=== PATIENT | male | born 1955 | race Caucasian/White ===

== ENCOUNTER 2017-05-29 18:53 | Inpatient (IN) | payer OTHER ==
[~2017-05-29] VITALS: Ht 172.7 cm; Wt 98.0 kg
[~2017-05-29 18:53] MED LIST: BENA25TA3 PO; HUMALOG SQ; HYDR-3535 PO; IBUP200T47 PO; LANTUS2P SQ; OMEP40CA2 PO
[2017-05-29 19:50] VITALS: BP 131/65; PULSE 94; RESP 16; TEMP 98.3; O2SAT 99
[2017-05-29 20:02] VITALS: BP 168/75; PULSE 96; RESP 16; TEMP 97.7; O2SAT 95
[2017-05-29] MEDS ORDERED: HYDR-3583 PO (20:07)
[2017-05-29] MEDS ORDERED: MORPHINE SULFATE 2 MG/ML INJ IV PUSH ONE (20:15)
[2017-05-29] MEDS ORDERED: DEXTROSE 50% IN WATER 50 ML SYRINGE ONE ×3 (20:25→22:21)
[2017-05-29] MEDS ORDERED: DEXTROSE 50% IN WATER 50 ML VIAL(D50) IV PUSH ONE ×3 (20:30→22:30)
[2017-05-29] MEDS ORDERED: VANCOMYCIN INJ 1,000 MG in SODIUM CHLOR 0.9% 250 ML INJ 250 ML IV ONE (20:30)
[2017-05-29] MEDS ORDERED: PIPERACIL-TAZO 4.5 GM PREMIX 100 ML IV ONE (20:30)
[2017-05-29 20:38] VITALS: O2SAT 95
--- NOTE | 2017-05-29 20:50 | RADRPT ---
EXAM DATE/TIME: 05/29/2017 20:31 [facility] COMPARISON: No previous studies available for comparison. INDICATIONS : Abdominal pain. Scrotal abscess. ORAL CONTRAST: No oral contrast ingested. RADIATION DOSE: 15.05 CTDIvol (mGy) MEDICAL HISTORY : Diabetes mellitus type 2. Gastroesophageal reflux disease. SURGICAL HISTORY : None. ENCOUNTER: Initial ACUITY: 1 day PAIN SCALE: 8/10 LOCATION: abdomen TECHNIQUE: Volumetric scanning of the abdomen and pelvis was performed. Using automated exposure control and ad justment of the mA and/or kV according to patient size, radiation dose was kept as low as reasonably achievable to obtain optimal diagnostic quality images. DICOM format image data is available electro nically for review and comparison. FINDINGS: A small right pleural effusion is noted. Diffuse anasarca is noted. There is fluid within the scrotum bilaterally. Evaluation of the solid organs of the abdomen is limited by the lack of intravenous con trast. There is no acute obstructive uropathy. No bowel obstruction is noted. The appendix is normal. The abdominal aorta is calcified but is not aneurysmally dilated. Mild chronic compression deformity involving the L5 vertebral body is noted. CONCLUSION: Fluid within the scrotum bilaterally. Diffuse anasarca. Small right pleural effusion. No acute obstru ctive uropathy or bowel obstruction. Mild chronic compression deformity involving L5. Nazario Hernandez MD on May 29, 2017 at 20:45 Board Certified Radiologist. This report was verified electronically.
--- NOTE | 2017-05-29 20:53 | RADRPT ---
EXAM DATE/TIME: 05/29/2017 20:31 [facility] COMPARISON: No previous studies available for comparison. INDICATIONS : Back pain. RADIATION DOSE: CTDIvol (mGy) ; Reconstructed from previous dataset, no dose MEDICAL HISTORY : Diabetes mellitus type 2. Gastroesophageal reflux disease. SURGICAL HISTORY : None. ENCOUNTER: Initial ACUITY: 1 day PAIN SCALE: 8/10 LOCATION: [facility] TECHNIQUE: Volumetric scanning of the lumbar spine was performed. Multiplanar reconstructions in the sagittal, coronal and oblique axial planes were performed. Using automated exposure control and adjustment of the mA and/or kV according to patient size, radiation dose was kept as low as reasonably achievable t o obtain optimal diagnostic quality images. DICOM format image data is available electronically for review and comparison. FINDINGS: There is mild chronic compression deformity involving L5. No acute fracture of the lumbar spine is no kim. No spondylolisthesis or spondylolysis is noted. Moderate right neuroforaminal narrowing is noted at L4-5 and L5-S1. No spinal stenosis is noted. CONCLUSION: Mild chronic compression deformity involving L5. No acute compression fracture, spond ylolisthesis or spondylolysis. Moderate right neural foraminal narrowing at L4-5 and L5-S1. Nazario Hernandez MD on May 29, 2017 at 20:49 Board Certified Radiologist. This report was verified electronically.
[2017-05-29 20:55] LABS: AUTOMATED NEUTROPHIL # 4.8 TH/MM3 (1.8-7.7); BASOPHIL % 0.7 % (0.0-2.0); EOSINOPHIL # 0.2 TH/MM3 (0-0.4); EOSINOPHIL % 2.9 % (0.0-4.0); HEMATOCRIT 36.3 % (39.0-51.0); LYMPH % 13.6 % (9.0-44.0); LYMPHOCYTE # 0.9 TH/MM3 (1.0-4.8); MEAN CELL VOLUME 81.3 FL (80.0-100.0); MEAN CORPUSCULAR HEMOGLOBIN 26.9 PG (27.0-34.0); MEAN CORPUSCULAR HGB CONC 33.1 % (32.0-36.0); MEAN PLATELET VOLUME 8.9 FL (7.0-11.0); MONO % 13.1 % (0.0-8.0); MONOCYTE # 0.9 TH/MM3 (0-0.9); NEUT % 69.7 % (16.0-70.0); PLATELET COUNT 221 TH/MM3 (150-450); RED BLOOD COUNT 4.46 MIL/MM3 (4.50-5.90); RED CELL DISTRIBUTION WIDTH 14.2 % (11.6-17.2); WHITE BLOOD COUNT 6.8 TH/MM3 (4.0-11.0)
--- NOTE | 2017-05-29 21:01 | PD ---
HPI Chief Complaint: Complaint Time Seen by Provider: 20:06 Travel History International Travel<30 days: No Contact w/Intl Traveler<30days: No Traveled to known affect area: No History of Present Illness HPI 62-year-old male with history of insulin dependent diabetes, chronic low back pain, here for evaluation of testicular pain and swelling as well as low back pain. Patient reports he first noticed a testicular swelling 2 days ago, and since then it has progressively increased in size and pain. Pain is severe, constant, worse with movement and palpation. Patient also reports having chronic lower back pain and is on Lortab for this, however his pain has acutely worsened over the last couple of days. He denies trauma. No fevers. No urinary or bowel incontinence or retention. PFSH Past Medical History Diabetes: Yes (IDDM) Patient Takes Glucophage: No Diminished Hearing: No GERD: Yes Musculoskeletal: Yes (Chronic back pain. ) Tetanus Vaccination: < 5 Years Influenza Vaccination: No Social History Alcohol Use: No Tobacco Use: Yes (2 packs per week. ) Substance Use: No Allergies-Medications (Allergen,Severity, Reaction): Coded Allergies: No Known Allergies (Unverified Allergy, Unknown, 05/29/17) Reported Meds & Prescriptions Reported Meds & Active Scripts Active Reported Hydrocodone-Acetaminophen 10-325 mg Tab 1 Tab PO Q6H PRN Ibuprofen 200 Mg Tab 200 Mg PO Q6H PRN Omeprazole 40 Mg Cap 40 Mg PO DAILY Humalog Inj (Insulin Human Lispro) 1,000 Unit/10 Ml Vial 2-12 Units SQ ACHS Max dose at bedtime:( )units; sugars < 70,(0)units; sugars 150-199,(2)units; sugars 200-249,(4)units; sugars 250-299,(7)units; sugars 300-349,(10)units; sugars more than 349,(12)units. Lantus Inj (Insulin Glargine) 100 Unit/Ml Inj 30 Units SQ BID Review of Systems Except as stated in HPI: all other systems reviewed are Neg Physical Exam Narrative GENERAL: Well-developed, well-nourished, no apparent distress. SKIN: Focused skin assessment warm/dry. HEAD: Atraumatic. Normocephalic. EYES: Pupils equal and round. No scleral icterus. No injection or drainage. ENT: Mucous membranes pink and moist. NECK: Trachea midline. No JVD. CARDIOVASCULAR: Regular rate and rhythm. RESPIRATORY: No accessory muscle use. Clear to auscultation. Breath sounds equal bilaterally. GASTROINTESTINAL: Abdomen soft, non-tender, nondistended. : Significant scrotal edema and erythema with apparent fluid-filled scrotum on exam, no crepitus, no necrosis, no induration. MUSCULOSKELETAL: No obvious deformities. No clubbing. No cyanosis. No edema. Moderate midline lumbar spine tenderness without step-off. NEUROLOGICAL: Awake and alert. No obvious cranial nerve deficits. Motor grossly within normal limits. Normal speech. PSYCHIATRIC: Appropriate mood and affect; insight and judgment normal. Data Data Last Documented VS Vital Signs Date Time Temp Pulse Resp B/P (MAP) Pulse Ox O2 Delivery O2 Flow Rate FiO2 05/29/17 21:43 89 16 138/67 (90) 98 Room Air 05/29/17 20:02 97.7 Orders Orders Sepsis Workup Initiated (05/29/17 ) Electrocardiogram (05/29/17 20:10) Complete Blood Count With Diff (05/29/17 20:10) Comprehensive Metabolic Panel (05/29/17 20:10) Prothrombin Time / Inr (Pt) (05/29/17 20:10) Act Partial Throm Time (Ptt) (05/29/17 20:10) Lactic Acid Sepsis Protocol (05/29/17 20:10) Lipase (05/29/17 20:10) Urinalysis - C+S If Indicated (05/29/17 20:10) Blood Culture (05/29/17 20:10) Ecg Monitoring (05/29/17 20:10) Iv Access Insert/Monitor (05/29/17 20:10) Oximetry (05/29/17 20:10) Ct Abd/Pel W/O Iv Contrast (05/29/17 20:10) Us Testicles W Doppler (05/29/17 ) Morphine Inj (Morphine Inj) (05/29/17 20:15) Ct Lumb Spine W/O Contrast (05/29/17 ) Vancomycin Inj (Vancomycin Inj) (05/29/17 20:30) Piperacil-Tazo 4.5 Gm Premix (Zosyn 4.5 (05/29/17 20:30) Dextrose 50% In David (Vial) Inj (D50w (Vi (05/29/17 20:30) Dextrose 50% In David (Syr) Inj (D50w (Syr (05/29/17 20:25) Dextrose 50% In David (Syr) Inj (D50w (Syr (05/29/17 21:31) Dextrose 50% In David (Vial) Inj (D50w (Vi (05/29/17 21:45) Dextrose 10% Inj (D... W/Sodium Chloride (05/29/17 22:00) Admit Order (Ed Use Only) (05/29/17 22:02) Labs Laboratory Tests Test 05/29/17 20:30 White Blood Count 6.8 TH/MM3 Red Blood Count 4.46 MIL/MM3 Hemoglobin 12.0 GM/DL Hematocrit 36.3 % Mean Corpuscular Volume 81.3 FL Mean Corpuscular Hemoglobin 26.9 PG Mean Corpuscular Hemoglobin Concent 33.1 % Red Cell Distribution Width 14.2 % Platelet Count 221 TH/MM3 Mean Platelet Volume 8.9 FL Neutrophils (%) (Auto) 69.7 % Lymphocytes (%) (Auto) 13.6 % Monocytes (%) (Auto) 13.1 % Eosinophils (%) (Auto) 2.9 % Basophils (%) (Auto) 0.7 % Neutrophils # (Auto) 4.8 TH/MM3 Lymphocytes # (Auto) 0.9 TH/MM3 Monocytes # (Auto) 0.9 TH/MM3 Eosinophils # (Auto) 0.2 TH/MM3 Basophils # (Auto) 0.0 TH/MM3 CBC Comment DIFF FINAL Differential Comment Prothrombin Time 11.1 SEC Prothromb Time International Ratio 1.1 RATIO Activated Partial Thromboplast Time 26.0 SEC Blood Urea Nitrogen 24 MG/DL Creatinine 0.72 MG/DL Random Glucose 40 MG/DL Total Protein 6.4 GM/DL Albumin 2.9 GM/DL Calcium Level 8.6 MG/DL Alkaline Phosphatase 170 U/L Aspartate Amino Transf (AST/SGOT) 40 U/L Alanine Aminotransferase (ALT/SGPT) 42 U/L Total Bilirubin 0.3 MG/DL Sodium Level 140 MEQ/L Potassium Level 3.8 MEQ/L Chloride Level 107 MEQ/L Carbon Dioxide Level 23.5 MEQ/L Anion Gap 10 MEQ/L Estimat Glomerular Filtration Rate 111 ML/MIN Lactic Acid Level 1.8 mmol/L Lipase 107 U/L [facility] Medical Decision Making Medical Screen Exam Complete: Yes Emergency Medical Condition: Yes Differential Diagnosis Fourniere's gangrene, scrotal abscess, testicular torsion, chronic low back pain , spinal stenosis, sepsis Narrative Course Vital signs reviewed. CBC: WBC 6.8, hemoglobin 12, hematocrit 36.3, platelets 221. CMP is remarkable for random glucose 48, otherwise unremarkable. Lactic acid is 1.8. CT abdomen pelvis: CONCLUSION: Fluid within the scrotum bilaterally. Diffuse anasarca. Small right pleural effusion. No acute obstructive uropathy or bowel obstruction. Mild chronic compression deformity involving L5. The patient was empirically started on IV vancomycin and IV Zosyn for suspected scrotal infection/abscess versus Fourniere's gangrene. Initial BGL was in the 50s. He was given an amp of D50 and repeat blood sugar was even lower at 36. He was given another amp and then started on D10 half-normal saline at 75 cc per hour. Case was discussed with marine diver Dr. Peter who will admit the patient to his service. Critical Care Narrative Aggregate critical care time was 35 minutes. Time to perform other separately billable procedures was not included in the critical care time. My time did not include minutes spent treating any other patients simultaneously or on activities that did not directly contribute to the patient's treatment. The services I provided to this patient were to treat and/or prevent clinically significant deterioration that could result in: , permanent disability, worsening clinical condition I provided critical care services requiring my management, as noted below: Chart data review, documentation time, medication orders and management, vital sign assessments/reviewing monitor data, ordering and reviewing lab tests, ordering and interpreting/reviewing x-rays and diagnostic studies, care of the patient and discussion of the patient with the admitting physicians. Diagnosis Primary Impression: Sepsis Qualified Codes: A41.9 - Sepsis, unspecified organism Additional Impressions: Hypoglycemia Scrotal edema Admitting Information Admitting Physician Requests: Admit Sidney Ramos MD May 29, 2017 21:01
[2017-05-29 21:05] LABS: INTERNATIONAL NORMALIZED RATIO 1.1 RATIO; PROTHROMBIN TIME - PATIENT 11.1 SEC (9.8-11.6)
[2017-05-29 21:10] LABS: ALBUMIN 2.9 GM/DL (3.4-5.0); ALKALINE PHOSPHATASE 170 U/L (45-117); ALT (GPT) 42 U/L (12-78); AST (GOT) 40 U/L (15-37); BICARBONATE 23.5 MEQ/L (21.0-32.0); BLOOD UREA NITROGEN 24 MG/DL (7-18); CALCIUM 8.6 MG/DL (8.5-10.1); CHLORIDE 107 MEQ/L (98-107); CREATININE 0.72 MG/DL (0.60-1.30); GLOMERULAR FILTRATION RATE 111 ML/MIN (>89); SODIUM (NA) 140 MEQ/L (136-145); TOTAL BILIRUBIN ADULT 0.3 MG/DL (0.2-1.0); TOTAL PROTEIN 6.4 GM/DL (6.4-8.2)
[2017-05-29 21:11] LABS: GLUCOSE,RANDOM 40 MG/DL (74-106)
[2017-05-29 21:43] VITALS: BP 138/67; PULSE 89; RESP 16; O2SAT 98
[2017-05-29] MEDS ORDERED: SODIUM CHLORIDE 23.4% INJ 77 MEQ in DEXTROSE 10% INJ 1,000 ML IV SCH (22:00)
--- NOTE | 2017-05-29 22:10 | RADRPT ---
EXAM DATE/TIME: 05/29/2017 20:48 [facility] COMPARISON: No previous studies available for comparison. INDICATIONS : Testicular pain. MEDICAL HISTORY : Gastroesophageal reflux disease. GERD. Chronic back pain. Tabacco use. Diabetes. SURGICAL HISTORY : Left hand and left shoulder surgery. ENCOUNTER: Initial ACUITY: 2 days PAIN SCORE: 5/10 LOCATION: Bilateral testicles. MEASUREMENTS: RIGHT TESTICLE: 3.6 x 2.3 x 2.4cm LEFT TESTICLE: 3.4 x 2.2 x 2.5cm FINDINGS: RIGHT TESTICLE: Homogeneous echotexture without intra or extratesticular mass. Blood flow is symmetric and within no rmal limits. No varicocele. Small hydrocele is noted. Epididymis is within normal limits. LEFT TESTICLE: Homogeneous echotexture without intra or extratesticular mass. Blood flow is symmetric and within no rmal limits. No varicocele. Small hydrocele is noted. Epididymis is within normal limits. SCROTUM: Within normal limits. CONCLUSION: Small bilateral hydroceles. No intratesticular mass, testicular torsion or acute epid idymo- orchitis. Nazario Hernandez MD on May 29, 2017 at 22:07 Board Certified Radiologist. This report was verified electronically.
[2017-05-29] MEDS ORDERED: CHLORHEXIDINE GLUCONATE 2 % 1 PACK (2 CLOTHS) TOP PRN (22:15)
[2017-05-29] MEDS ORDERED: POTASSIUM CHLORIDE 25 MEQ EFFERVESCENT TAB PO PRN (22:15)
[2017-05-29] MEDS ORDERED: MAGNESIUM HYDROXIDE SUSP 30 ML CUP PO PRN (22:15)
[2017-05-29] MEDS ORDERED: MISCELLANEOUS NURSING INFORMATION XX SCH (22:15)
[2017-05-29] MEDS ORDERED: POTASSIUM PHOSPHATE MONOBASIC 500 MG TAB PO PRN (22:15)
[2017-05-29] MEDS ORDERED: MAGNESIUM SULFATE INJ 4 GM in SODIUM CHLORIDE 0.9% INJ 92 ML IV PRN (22:15)
[2017-05-29] MEDS ORDERED: ONDANSETRON HCL 4 MG/2 ML VIAL IV PUSH PRN (22:15)
[2017-05-29] MEDS ORDERED: RESP: ALBUTEROL 2.5 MG/IPRATROPIUM 0.5 MG NEB (PRN) INH (22:15)
[2017-05-29] MEDS ORDERED: POTASSIUM PHOSPHATE MONOBASIC 500 MG TAB PO/TUBE PRN (22:15)
[2017-05-29] MEDS ORDERED: SODIUM PHOSPHATE INJ 30 MMOL in SODIUM CHLOR 0.9% 250 ML INJ 240 ML IV PRN (22:15)
[2017-05-29] MEDS ORDERED: Vancomycin Consult Pharmacy 1 EA OTHER SCH (22:15)
[2017-05-29] MEDS ORDERED: MAGNESIUM SULFATE INJ 2 GM in SODIUM CHLORIDE 0.9% INJ 96 ML IV PRN (22:15)
[2017-05-29] MEDS ORDERED: POTASSIUM PHOSPHATE INJ 30 MMOL in SODIUM CHLOR 0.9% 250 ML INJ 250 ML IV PRN (22:15)
[2017-05-29] MEDS ORDERED: SENNOSIDES 8.6 MG TAB PO PRN (22:15)
[2017-05-29] MEDS ORDERED: BISACODYL 10 MG SUPP RECTAL PRN (22:15)
[2017-05-29] MEDS ORDERED: LACTULOSE SYRUP 20 GM/30 ML CUP PO PRN (22:15)
[2017-05-29] MEDS ORDERED: MAGNESIUM OXIDE 400 MG TAB PO PRN (22:15)
[2017-05-29] MEDS ORDERED: POTASSIUM CHLOR 20 MEQ PREMIX 100 ML IV PRN ×2 (22:15)
[2017-05-29] MEDS ORDERED: POTASSIUM CHLOR 40 MEQ PREMIX 100 ML IV PRN ×2 (22:15)
--- NOTE | 2017-05-29 22:24 | HHI.HP ---
[facility] Service Critical Care Medicine Primary Care Physician Myrtle Reynoso MD Admission Diagnosis sepsis, hypoglycemia, scrotal edema Diagnosis: Chief Complaint: scrotal swelling Travel History International Travel<30 Days: No Contact w/Intl Traveler <30 Da: No Traveled to Known Affected Are: No History of Present Illness 8-year-old male with a history of insulin-dependent diabetes, chronic low back pain who presented with scrotal swelling and pain. The patient reports at least 2 days of progressive scrotal swelling. He does state that intermittently his legs swell "because of his diabetes". He denies chest pain, orthopnea, dyspnea on exertion, fever, chills, purulent drainage from his scrotum or penis. His review of systems is otherwise unremarkable. He has a normal white count, is afebrile. He does have an elevated BNP at 800. Review of Systems Constitutional: COMPLAINS OF: Weight gain, DENIES: Fatigue, Fever, Chills Respiratory: DENIES: Cough, Sputum production, Shortness of breath Cardiovascular: DENIES: Chest pain, Dyspnea on Exertion, Lower Extremity Edema , Orthopnea Genitourinary: COMPLAINS OF: Testicular Pain, Testicular Swelling, DENIES: Sexual dysfunction, Urinary frequency, Urinary incontinence, Urgency, Hematuria , Dysuria, Nocturia, Penile Discharge Past Family Social History Allergies: Coded Allergies: No Known Allergies (Unverified Allergy, Unknown, 05/29/17) Past Medical History Insulin-dependent diabetes GERD Chronic back pain Past Surgical History No recent surgery Reported Medications Hydrocodone-Acetaminophen 10-325 mg Tab 1 Tab PO Q6H PRN Ibuprofen 200 Mg Tab 200 Mg PO Q6H PRN Omeprazole 40 Mg Cap 40 Mg PO DAILY Humalog Inj (Insulin Human Lispro) 1,000 Unit/10 Ml Vial 2-12 Units SQ ACHS Max dose at bedtime:( )units; sugars < 70,(0)units; sugars 150-199,(2)units; sugars 200-249,(4)units; sugars 250-299,(7)units; sugars 300-349,(10)units; sugars more than 349,(12)units. Lantus Inj (Insulin Glargine) 100 Unit/Ml Inj 30 Units SQ BID Active Ordered Medications See MAR Family History Reviewed in the chart and found to be noncontributory to his acute illness Social History 2 pack per week smoker. Denies alcohol. Denies other drugs. Physical Exam Vital Signs Vital Signs Date Time Temp Pulse Resp B/P (MAP) Pulse Ox O2 Delivery O2 Flow Rate FiO2 05/29/17 21:43 89 16 138/67 (90) 98 Room Air 05/29/17 20:38 95 Room Air 05/29/17 20:02 97 20 05/29/17 20:02 97.7 96 16 168/75 (106) 95 Room Air 05/29/17 19:50 98.3 94 16 131/65 (87) 99 Physical Exam GENERAL: Middle-aged male, lying in bed HEENT: Normocephalic. Atraumatic. Pupils equal, round, reactive, conjugate. Mucous membranes are moist NECK: Trachea is midline. There is no JVD. CHEST: Equal chest rise. Room air. CARDIOVASCULAR: Normal rate, regular rhythm. Sinus by telemetry. ABDOMEN: Soft, nontender, nondistended. No guarding. MUSCULOSKELETAL: Pulses 2+. 2+ pitting edema which comes up above the thigh to the lower abdomen. GENITOURINARY: Significant scrotal edema without evidence of erythema, purulent drainage, induration, fluctuance. Normal male circumcised penis. NEUROLOGICAL: [place]. GCS 15. No focal deficits. Laboratory Laboratory Tests Test 05/29/17 20:30 White Blood Count 6.8 Red Blood Count 4.46 Hemoglobin 12.0 Hematocrit 36.3 Mean Corpuscular Volume 81.3 Mean Corpuscular Hemoglobin 26.9 Mean Corpuscular Hemoglobin Concent 33.1 Red Cell Distribution Width 14.2 Platelet Count 221 Mean Platelet Volume 8.9 Neutrophils (%) (Auto) 69.7 Lymphocytes (%) (Auto) 13.6 Monocytes (%) (Auto) 13.1 Eosinophils (%) (Auto) 2.9 Basophils (%) (Auto) 0.7 Neutrophils # (Auto) 4.8 Lymphocytes # (Auto) 0.9 Monocytes # (Auto) 0.9 Eosinophils # (Auto) 0.2 Basophils # (Auto) 0.0 CBC Comment DIFF FINAL Differential Comment Prothrombin Time 11.1 Prothromb Time International Ratio 1.1 Activated Partial Thromboplast Time 26.0 Blood Urea Nitrogen 24 Creatinine 0.72 Random Glucose 40 Total Protein 6.4 Albumin 2.9 Calcium Level 8.6 Alkaline Phosphatase 170 Aspartate Amino Transf (AST/SGOT) 40 Alanine Aminotransferase (ALT/SGPT) 42 Total Bilirubin 0.3 Sodium Level 140 Potassium Level 3.8 Chloride Level 107 Carbon Dioxide Level 23.5 Anion Gap 10 Estimat Glomerular Filtration Rate 111 Lactic Acid Level 1.8 Lipase 107 Date/Time Source Procedure Growth Status 05/29/17 20:30 Blood Peripheral Aerobic Blood Culture Pending Received 05/29/17 20:30 Blood Peripheral Anaerobic Blood Culture Pending Received Result Diagram: 05/29/17202905/29/172029 Imaging Last Impressions Abdomen/Pelvis CT 05/29/172009 Signed Impressions: Service Date/Time: May 20:31 - CONCLUSION: Fluid within the scrotum bilaterally. Diffuse anasarca. Small right pleural effusion. No acute obstructive uropathy or bowel obstruction. Mild chronic compression deformity involving L5. Nazario Hernandez MD Scrotum Ultrasound 05/29/17 0000 Signed Impressions: Service Date/Time: May 20:48 - CONCLUSION: Small bilateral hydroceles. No intratesticular mass, testicular torsion or acute epididymo- orchitis. Nazario Hernandez MD Lumbar Spine CT 05/29/17 0000 Signed Impressions: Service Date/Time: May 20:31 - CONCLUSION: Mild chronic compression deformity involving L5. No acute compression fracture, spondylolisthesis or spondylolysis. Moderate right neural foraminal narrowing at L4-5 and L5-S1. MD Ariel Tovari VTE Risk Assessment Caprini VTE Risk Assessment: Mod/High Risk (score >= 2) Caprini Risk Assessment Model Point Value = 1 Point Value = 2 Point Value = 3 Point Value = 5 Age 41-60 Minor surgery BMI > 25 kg/m2 Swollen legs Varicose veins or History of unexplained or recurrent spontaneous Oral contraceptives or hormone replacement Sepsis (< 1 month) Serious lung disease, including pneumonia (< 1 month) Abnormal pulmonary function Acute myocardial infarction Congestive heart failure (< 1 month) History of inflammatory bowel disease Medical patient at bed rest Age 61-74 Arthroscopic surgery Major open surgery (> 45 min) Laparoscopic surgery (> 45 min) Malignancy Confined to bed (> 72 hours) Immobilizing plaster cast Central venous access Age >= 75 History of VTE Family history of VTE Factor V Leiden Prothrombin [id number] Lupus anticoagulant Anticardiolipin antibodies Elevated serum homocysteine Heparin-induced thrombocytopenia Other congenital or acquired thrombophilia Stroke (< 1 month) Elective arthroplasty Hip, pelvis, or leg fracture Acute spinal cord injury (< 1 month) Prophylaxis Regimen Total Risk Factor Score Risk Level Prophylaxis Regimen 0-1 Low Early ambulation 2 Moderate Order ONE of the following: *Sequential Compression Device (SCD) *Heparin 5000 units SQ BID 3-4 Higher Order ONE of the following medications: *Heparin 5000 units SQ TID *Enoxaparin/Lovenox 40 mg SQ daily (WT < 150 kg, CrCl > 30 mL/min) *Enoxaparin/Lovenox 30 mg SQ daily (WT < 150 kg, CrCl > 10-29 mL/min) *Enoxaparin/Lovenox 30 mg SQ BID (WT < 150 kg, CrCl > 30 mL/min) AND/OR *Sequential Compression Device (SCD) 5 or more Highest Order ONE of the following medications: *Heparin 5000 units SQ TID (Preferred with Epidurals) *Enoxaparin/Lovenox 40 mg SQ daily (WT < 150 kg, CrCl > 30 mL/min) *Enoxaparin/Lovenox 30 mg SQ daily (WT < 150 kg, CrCl > 10-29 mL/min) *Enoxaparin/Lovenox 30 mg SQ BID (WT < 150 kg, CrCl > 30 mL/min) AND *Sequential Compression Device (SCD) Assessment and Plan Assessment and Plan Assessment: 62-year-old male with new onset scrotal edema and severe hypoglycemia despite dextrose. This was initially thought to be highly concerning for Richardson's, however on serial re-evaluations, the patient no longer appears to have infectious source of his edema. It appears much more likely that the patient has worsening heart failure, likely with preserved EF. The patient has never been told he has any sort of heart failure before, but these are all consistent with his elevated BNP and symptoms of lower extremity edema. Will order 2D echo to confirm the diagnosis. His hypoglycemia is more concerning, but it appears that he has not eaten anything today, but still took his Lantus which may be the source of his hypoglycemia. Continue dextrose infusion and frequent glycemic checks. Active problems: Severe hypoglycemia, likely secondary to long-acting insulin use Scrotal edema Anasarca Suspected congestive heart failure with preserved EF Plan: Admit to ICU for frequent glycemic checks D10 infusion at 75 mL's an hour Lasix 60 mg's IV 1 We will cover with vancomycin and Zosyn empirically for 48 hours until blood cultures come back, given the patient is diabetic and would be at high risk for Richardson's gangrene. We have low threshold to de-escalate and stop antibiotics if cultures are negative and patient remains afebrile. 2D echo Hold all insulin therapy for now Advance diet Disposition: May transfer out of ICU when stable off dextrose infusion and no longer hypoglycemic Edgar Peter MD May 29, 2017 22:24
[2017-05-29 22:37] VITALS: BP 146/72; PULSE 87; RESP 16; O2SAT 98
[2017-05-29] MEDS ORDERED: VANCOMYCIN INJ 700 MG in SODIUM CHLOR 0.9% 250 ML INJ 250 ML IV SCH (23:00)
[2017-05-29] MEDS: ENOXAPARIN SODIUM 40 MG/0.4 ML SYRINGE SQ SCH (23:16)
[2017-05-30] VITALS (10 sets, daily range): BP systolic 119–155; BP diastolic 67–74; PULSE 88–96; RESP 16–21; TEMP 97.5–98; O2SAT 88–100
[2017-05-30] MEDS: CHLORHEXIDINE GLUCONATE 2 % 1 PACK (2 CLOTHS) TOP SCH (01:29)
[2017-05-30] MEDS ORDERED: FUROSEMIDE 40 MG/4 ML VIAL IV PUSH ONE (03:15)
[2017-05-30] MEDS: RESP: ALBUTEROL 2.5 MG/IPRATROPIUM 0.5 MG NEB (SCH) INH ×3 (03:31→16:00)
[2017-05-30] MEDS: PIPERACIL-TAZO 4.5 GM PREMIX 100 ML IV SCH ×4 (03:58→23:42)
[2017-05-30 04:16] LABS: HEMATOCRIT 36.8 % (39.0-51.0); MEAN CELL VOLUME 81.7 FL (80.0-100.0); MEAN CORPUSCULAR HEMOGLOBIN 26.7 PG (27.0-34.0); MEAN CORPUSCULAR HGB CONC 32.7 % (32.0-36.0); MEAN PLATELET VOLUME 8.8 FL (7.0-11.0); PLATELET COUNT 210 TH/MM3 (150-450); RED BLOOD COUNT 4.51 MIL/MM3 (4.50-5.90); RED CELL DISTRIBUTION WIDTH 13.8 % (11.6-17.2); WHITE BLOOD COUNT 6.7 TH/MM3 (4.0-11.0)
[2017-05-30 04:54] LABS: BICARBONATE 25.9 MEQ/L (21.0-32.0); CALCIUM 8.3 MG/DL (8.5-10.1); CREATININE 0.79 MG/DL (0.60-1.30)
[2017-05-30] MEDS ORDERED: DEXTROSE 50% IN WATER 50 ML VIAL(D50) IV PUSH PRN (07:45)
[2017-05-30] MEDS ORDERED: GLUCAGON 1 MG/ML VIAL OTHER PRN (07:45)
--- NOTE | 2017-05-30 07:50 | HHI.CCPN ---
Subjective Remarks/Hospital Course 8-year-old male with a history of insulin-dependent diabetes, chronic low back pain who presented with scrotal swelling and pain. The patient reports at least 2 days of progressive scrotal swelling. He does state that intermittently his legs swell "because of his diabetes". He denies chest pain, orthopnea, dyspnea on exertion, fever, chills, purulent drainage from his scrotum or penis. His review of systems is otherwise unremarkable. He has a normal white count, is afebrile. He does have an elevated BNP at 800. 05/30: It appears his biggest complaint is chronic back pain. Check cardiac ECHO , continue diuretics. Transfer. No evidence of infection. D/C antibiotics. D/C D !), restart long-acting insulin at lower dose, start SSI. Objective Vital Signs Date Time Temp Pulse Resp B/P (MAP) Pulse Ox O2 Delivery O2 Flow Rate FiO2 05/30/17 04:00 97.7 96 20 119/73 (88) 100 05/30/17 01:00 Room Air Intake and Output 05/30/17 05/30/17 05/31/17 08:00 16:00 00:00 Intake Total 800 ml Output Total 2075 ml Balance -1275 ml Result Diagram: 05/30/17 0331 05/30/171 Imaging Last Impressions Abdomen/Pelvis CT 05/29/172009 Signed Impressions: Service Date/Time: May 20:31 - CONCLUSION: Fluid within the scrotum bilaterally. Diffuse anasarca. Small right pleural effusion. No acute obstructive uropathy or bowel obstruction. Mild chronic compression deformity involving L5. Nazario Hernandez MD Scrotum Ultrasound 05/29/17 Signed Impressions: Service Date/Time: May 20:48 - CONCLUSION: Small bilateral hydroceles. No intratesticular mass, testicular torsion or acute epididymo- orchitis. Nazario Hernandez MD Lumbar Spine CT 05/29/17 Signed Impressions: Service Date/Time: May 20:31 - CONCLUSION: Mild chronic compression deformity involving L5. No acute compression fracture, spondylolisthesis or spondylolysis. Moderate right neural foraminal narrowing at L4-5 and L5-S1. Nazario Hernandez MD Objective Remarks GENERAL: Middle-aged male, lying in bed, mild SOB related to weight/size HEENT: Normocephalic. Atraumatic. Pupils equal, round, reactive, conjugate. Mucous membranes are moist NECK: Trachea is midline. Airway widely patent. CHEST: Equal chest rise. Clear, normal excursions. CARDIOVASCULAR: Normal rate, regular rhythm. Sinus by telemetry. ABDOMEN: Soft, nontender, nondistended. No guarding. BS active. MUSCULOSKELETAL: Pulses 2+. 2+ pitting edema which comes up above the thigh to the lower abdomen. GENITOURINARY: Significant scrotal edema without evidence of erythema, purulent drainage, induration, fluctuance. Normal male circumcised penis. NEUROLOGICAL: GCS 15. No focal deficits. Moves 4 limbs with 5/5 strength. O X 3. A/P Assessment and Plan Assessment: 62-year-old male with new onset scrotal edema and severe hypoglycemia despite dextrose. This was initially thought to be highly concerning for Richardson's, however on serial re-evaluations, the patient no longer appears to have infectious source of his edema. It appears much more likely that the patient has worsening heart failure, likely with preserved EF. The patient has never been told he has any sort of heart failure before, but these are all consistent with his elevated BNP and symptoms of lower extremity edema. Will order 2D echo to confirm the diagnosis. His hypoglycemia is more concerning, but it appears that he has not eaten anything today, but still took his Lantus which may be the source of his hypoglycemia. Continue dextrose infusion and frequent glycemic checks. Active problems: Severe hypoglycemia, likely secondary to long-acting insulin use Scrotal edema Anasarca Suspected congestive heart failure with preserved EF Plan: Frequent glycemic checks d/c 10 infusion at 75 mL's an hour Lasix 40 bid iv D/C vancomycin and Zosyn 2D echo Start levemir 20 bid (Normally on lantus 30 bid) Advance diet CC/ADA Disposition: Transfer Dante Muller MD May 30, 2017 07:50
--- NOTE | 2017-05-30 08:53 | EKG ---
Date Performed: 05/29/2017 Time Performed: 20:52:08 PTAGE: 62 years EKG: Sinus rhythm POSSIBLE LEFT ATRIAL ENLARGEMENT PROBABLE ANTERIOR MYOCARDIAL INFARCTION PROBABLE INFERIOR MYOCARDIA L INFARCTION ABNORMAL ECG NO PREVIOUS TRACING DOCTOR: Rachell Mora Interpretating Date/Time 05/30/2017 08:51:50
[2017-05-30] MEDS: DOCUSATE SODIUM 50 MG/SENNA 8.6 MG TAB PO SCH ×2 (09:00→21:00)
[2017-05-30] MEDS: FUROSEMIDE 40 MG/4 ML VIAL IV PUSH SCH ×2 (09:20→17:38)
[2017-05-30] MEDS: INSULIN ASPART SUPPLEMENTAL SCALE SQ SCH ×4 (09:20→21:44)
[2017-05-30] MEDS: VANCOMYCIN 1,500 MG/NS 500 ML IV SCH ×4 (11:22→23:42)
[2017-05-30] MEDS: INSULIN DETEMIR 100 UNITS/ML VIAL SQ SCH ×2 (11:30→21:00)
--- NOTE | 2017-05-30 14:34 | ECHRPT ---
Indication: Heart failure, unspecified CONCLUSIONS The left ventricular systolic function is moderately reduced with an estimated ejection fraction in the range of 40-45%. Wall thickness is measured at the upper limits of normal. Normal left ventricular size. There is mild tricuspid valve regurgitation. The estimated pulmonary arterial pressure is 47.5 mmHg. BP: 119 / 73 HR: 96 Rhythm: Sinus MEASUREMENTS (Male / Female) Normal Values Technical Quality:Good 2D ECHO LV Diastolic Diameter PLAX 5.2 cm 4.2 - 5.9 / 3.9 - 5.3 cm LV Systolic Diameter PLAX 4.3 cm IVS Diastolic Thickness 1.1 cm 0.6 - 1.0 / 0.6 - 0.9 cm LVPW Diastolic Thickness 1.1 cm 0.6 - 1.0 / 0.6 - 0.9 cm LV Relative Wall Thickness 0.4 LVOT Diameter 1.9 cm LA Systolic Diameter LX 3.7 cm 3.0 - 4.0 / 2.7 - 3.8 cm M-MODE Aortic Root Diameter MM 2.9 cm AV Cusp Separation MM 1.9 cm DOPPLER AV Peak Velocity 112.0 cm/s AV Peak Gradient 5.0 mmHg LVOT Peak Velocity 56.8 cm/s LVOT Peak Gradient 1.3 mmHg AV Area Cont Eq pk 1.4 cm MR Peak Velocity 351.0 cm/s MR Peak Gradient 49.3 mmHg Mitral E Point Velocity 88.4 cm/s Mitral A Point Velocity 51.8 cm/s Mitral E to A Ratio 1.7 LV E' Lateral Velocity 6.0 cm/s Mitral E to LV E' Lateral Ratio 14.6 LV E' Septal Velocity 5.7 cm/s Mitral E to LV E' Septal Ratio 15.6 TR Peak Velocity 306.0 cm/s TR Peak Gradient 37.5 mmHg Right Atrial Pressure 10.0 mmHg Pulmonary Artery Systolic Pressu 47.5 mmHg Right Ventricular Systolic Press 47.5 mmHg PV Peak Velocity 77.4 cm/s PV Peak Gradient 2.4 mmHg FINDINGS LEFT VENTRICLE The left ventricular systolic function is moderately reduced with an estimated ejection fraction in the range of 40-45%. Wall thickness is measured at the upper limits of normal. Normal left ventricular size. RIGHT VENTRICLE Normal right ventricular size and systolic function. LEFT ATRIUM The left atrial size is normal. RIGHT ATRIUM The right atrial size is normal. ATRIAL SEPTUM Normal atrial septal thickness without atrial level shunting by limited color doppler interrogation. AORTA The aortic root and proximal ascending aorta are normal in size on limited imaging. MITRAL VALVE Structurally normal mitral valve. No mitral valve stenosis or regurgitation. AORTIC VALVE Trileaflet aortic valve. No aortic valve stenosis or regurgitation. TRICUSPID VALVE There is moderate to severe tricuspid valve regurgitation. The estimated pulmonary arterial pressure is 47.5 mmHg. PULMONARY VALVE No pulmonary valve regurgitation or stenosis. VESSELS The inferior vena cava is normal in size. PERICARDIUM No pericardial effusion. Geovanni Castle MD, FACC, [facility] (Electronically Signed) Final Date:30 May 2017 14:32
[2017-05-30] MEDS: ACETAMINOPHEN/HYDROcodone 325 MG/10 MG TAB PO PRN ×2 (14:47→21:03)
[2017-05-30] MEDS ORDERED: INSULIN DETEMIR 100 UNITS/ML VIAL SQ SCH (21:00)
[2017-05-30] MEDS: ENOXAPARIN SODIUM 40 MG/0.4 ML SYRINGE SQ SCH (21:03)
[2017-05-31] MEDS: ACETAMINOPHEN/HYDROcodone 325 MG/10 MG TAB PO PRN (03:18)
[2017-05-31] MEDS: CHLORHEXIDINE GLUCONATE 2 % 1 PACK (2 CLOTHS) TOP SCH (04:00)
[2017-05-31] MEDS: PIPERACIL-TAZO 4.5 GM PREMIX 100 ML IV SCH (04:16)
[2017-05-31 06:07] LABS: AUTOMATED NEUTROPHIL # 3.8 TH/MM3 (1.8-7.7); BASOPHIL # 0.1 TH/MM3 (0-0.2); BASOPHIL % 1.4 % (0.0-2.0); EOSINOPHIL # 0.5 TH/MM3 (0-0.4); EOSINOPHIL % 7.3 % (0.0-4.0); HEMATOCRIT 36.4 % (39.0-51.0); HEMOGLOBIN 12.1 GM/DL (13.0-17.0); LYMPH % 18.2 % (9.0-44.0); LYMPHOCYTE # 1.1 TH/MM3 (1.0-4.8); MEAN CELL VOLUME 81.6 FL (80.0-100.0); MEAN CORPUSCULAR HEMOGLOBIN 27.1 PG (27.0-34.0); MEAN CORPUSCULAR HGB CONC 33.2 % (32.0-36.0); MEAN PLATELET VOLUME 8.9 FL (7.0-11.0); MONOCYTE # 0.7 TH/MM3 (0-0.9); NEUT % 61.1 % (16.0-70.0); PLATELET COUNT 207 TH/MM3 (150-450); RED BLOOD COUNT 4.46 MIL/MM3 (4.50-5.90); WHITE BLOOD COUNT 6.2 TH/MM3 (4.0-11.0)
[2017-05-31 06:36] LABS: ALBUMIN 2.8 GM/DL (3.4-5.0); ALKALINE PHOSPHATASE 157 U/L (45-117); ALT (GPT) 43 U/L (12-78); AST (GOT) 41 U/L (15-37); BICARBONATE 30.1 MEQ/L (21.0-32.0); BLOOD UREA NITROGEN 19 MG/DL (7-18); CALCIUM 8.6 MG/DL (8.5-10.1); CHLORIDE 99 MEQ/L (98-107); CREATININE 0.97 MG/DL (0.60-1.30); GLOMERULAR FILTRATION RATE 79 ML/MIN (>89); GLUCOSE,RANDOM 107 MG/DL (74-106); SODIUM (NA) 137 MEQ/L (136-145); TOTAL BILIRUBIN ADULT 0.5 MG/DL (0.2-1.0); TOTAL PROTEIN 6.4 GM/DL (6.4-8.2)
[2017-05-31] MEDS: INSULIN ASPART SUPPLEMENTAL SCALE SQ SCH (07:09)
[2017-05-31] MEDS: DOCUSATE SODIUM 50 MG/SENNA 8.6 MG TAB PO SCH (08:33)
[2017-05-31] MEDS: FUROSEMIDE 40 MG/4 ML VIAL IV PUSH SCH (08:33)
[2017-05-31 08:35] VITALS: BP 125/69; PULSE 81; RESP 16; TEMP 97.5; O2SAT 97
--- NOTE | 2017-05-31 08:37 | HHI.PR ---
Subjective Remarks in no acute distress. no sob. still with some swelling of the legs. blood sugar trend noted. d/w the RN. Objective Vitals Vital Signs Date Time Temp Pulse Resp B/P (MAP) Pulse Ox O2 Delivery O2 Flow Rate FiO2 05/30/17 23:28 97 05/30/17 22:30 97.8 88 16 128/74 (92) 98 05/30/17 21:30 92 05/30/17 12:00 88 05/30/17 12:00 98.0 88 21 139/69 (92) 99 I/O 05/30/17 05/30/17 05/30/17 05/31/17 05/31/17 05/31/17 07:00 15:00 23:00 07:00 15:00 23:00 Intake Total 900 ml 847 ml 1600 ml 1500 ml Output Total 2075 ml 1250 ml 1950 ml 300 ml 350 ml Balance -1175 ml -403 ml -350 ml 1200 ml -350 ml Intake Oral 900 ml 1500 ml 1500 ml IV Total 847 ml 100 ml Output Urine Total 2075 ml 1250 ml 1950 ml 300 ml 350 ml # Voids 4 6 # Bowel Movements 0 0 0 Result Diagram: 05/31/1752205/31/17522 Imaging Last Impressions Abdomen/Pelvis CT 05/29/172009 Signed Impressions: Service Date/Time: May 20:31 - CONCLUSION: Fluid within the scrotum bilaterally. Diffuse anasarca. Small right pleural effusion. No acute obstructive uropathy or bowel obstruction. Mild chronic compression deformity involving L5. Nazario Hernandez MD Scrotum Ultrasound 05/29/17 Signed Impressions: Service Date/Time: May 20:48 - CONCLUSION: Small bilateral hydroceles. No intratesticular mass, testicular torsion or acute epididymo- orchitis. Nazario Hernandez MD Lumbar Spine CT 05/29/17 Signed Impressions: Service Date/Time: May 20:31 - CONCLUSION: Mild chronic compression deformity involving L5. No acute compression fracture, spondylolisthesis or spondylolysis. Moderate right neural foraminal narrowing at L4-5 and L5-S1. Nazario Hernandez MD Objective Remarks GENERAL: This is a well-nourished, well-developed patient, in no apparent distress. CARDIOVASCULAR: Regular rate and regular rhythm without murmurs, gallops, or rubs. RESPIRATORY: Clear to auscultation. Breath sounds equal bilaterally. No wheezes , rales, or rhonchi. GASTROINTESTINAL: Abdomen soft, non-tender, nondistended. Normal, active bowel sounds MUSCULOSKELETAL: Extremities with bilateral pedal edema. NEURO: Alert & Oriented x4 to person, place, time, situation. Moves all ext x4 Medications and IVs Inpatient Medications Acetaminophen/ Hydrocodone Bitart ([place] 10-325 Mg) 1 tab Q6H PRN PO pain 6-10 Last administered on 05/31/17at 03:18; Start 05/30/17 at 07:45 Albuterol/ Ipratropium (Duoneb Neb) 1 ampule Q2HR NEB PRN INH WHEEZING; Start 05/29/17 at 22:15 Bisacodyl (Dulcolax Supp) 10 mg DAILY PRN RECTAL SEVERE CONSITIPATION/ IF NPO ; Start 05/29/17 at 22:15 Chlorhexidine Gluconate (Chlorhexidine 2% Cloth) 3 pack UNSCH PRN TOP HYGIENIC CARE; Start 05/29/17 at 22:15 Dextrose (D50w (Vial) Inj) 50 ml UNSCH PRN IV PUSH HYPOGLYCEMIA-SEE COMMENTS; Start 05/30/17 at 07:45 Enoxaparin Sodium (Lovenox Inj) 40 mg Q24H SQ Last administered on 05/30/17at 21: 03; Start 05/29/17 at 22:15 Furosemide (Lasix Inj) 40 mg BID@,18 IV PUSH Last administered on 05/30/17at 17 :38; Start 05/30/17 at 09:00 Glucagon (Glucagon Inj) 1 mg UNSCH PRN OTHER HYPOGLYCEMIA-SEE COMMENTS; Start 05/30/17 at 07:45 Insulin Aspart (NovoLOG SUPPLEMENTAL SCALE) 1 ACHS SLIDING SCALE SQ Last administered on 05/30/17at 21:44; Start 05/30/17 at 08:00 Insulin Detemir (Levemir Inj) 20 units Q12HR SQ Last administered on 05/30/17at 21:00; Start 05/30/17 at 11:30 Lactulose (Lactulose Liq) 30 ml DAILY PRN PO SEVERE CONSITIPATION/ IF PO; Start 05/29/17 at 22:15 Magnesium Hydroxide (Milk Of Magndelma Liq) 30 ml Q12H PRN PO Mild constipation ; Start 05/29/17 at 22:15 Magnesium Oxide (Mag-Ox) 800 mg UNSCH PRN PO For Magnesium 1.2 - 1.6 mg/dL; Start 05/29/17 at 22:15 Magnesium Sulfate 2 gm/Sodium Chloride 100 ml @ 50 mls/hr UNSCH PRN IV For Magnesium 1.2 - 1.6 mg/dL; Start 05/29/17 at 22:15 Magnesium Sulfate 4 gm/Sodium Chloride 100 ml @ 50 mls/hr UNSCH PRN IV For Magnesium 0.9 - 1.1 mg/dL; Start 05/29/17 at 22:15 Miscellaneous Information SPECIFIC LAB TO BE DRAWN:[facility] DATE TO BE DRBrian.. ONCE ONCE .XX ; Start 05/31/17 at 10:45; Stop 05/31/17 at 10:46 Morphine Sulfate (Morphine Inj) 4 mg ONCE ONCE IV PUSH Last administered on 05/29/17at 20:45; Start 05/29/17 at 20:15; Stop 05/29/17 at 20:16; Status DC Ondansetron HCl (Zofran Inj) 4 mg Q6H PRN IV PUSH NAUSEA OR VOMITING; Start 05/29/17 at 22:15 Pharmacy Profile Note 0 ml @ 0 mls/hr UNSCH OTHER ; Start 05/29/17 at 22:15 Piperacillin Sod/ Tazobactam Sod 100 ml @ 200 mls/hr Q6H IV Last administered on 05/31/17at 04:16; Start 05/30/17 at 05:00 Potassium Phosphate (K-Phos) 2,000 mg UNSCH PRN PO/TUBE SEE LABEL COMMENTS; Start 05/29/17 at 22:15 Potassium Phosphate 30 mmol/ Sodium Chloride 260 ml @ 42 mls/hr UNSCH PRN IV SEE LABEL COMMENTS; Start 05/29/17 at 22:15 Potassium Bicarb/ Potassium Chloride (K-Lyte Cl Eff) 50 meq UNSCH PRN PO For Potassium 3.3 - 3.5 mEq/L; Start 05/29/17 at 22:15 Potassium Chloride 100 ml @ 50 mls/hr Q2H PRN IV For Potassium 3.3 - 3.5 mEq/L ; Start 05/29/17 at 22:15 Senna/Docusate Sodium (Radha-Colace) 1 tab BID PO Last administered on 05/30/17at 09:00; Start 05/30/17 at 09:00 Sennosides (Senokot) 17.2 mg Q12H PRN PO Moderate constipation; Start 05/29/17 at 22:15 Sodium Chloride 77 meq/Dextrose 1,019.25 ml @ 10 mls/hr Q24H IV Last administered on 05/29/17at 22:34; Start 05/29/17 at 22:00; Stop 05/30/17 at 07:46; Status DC Sodium Phosphate 30 mmol/Sodium Chloride 250 ml @ 42 mls/hr UNSCH PRN IV For Phosphorus < 2.5 mg/dL; Start 05/29/17 at 22:15 Vancomycin HCl 700 mg/Sodium Chloride 257 ml @ 250 mls/hr DAILY@2300 IV Last administered on 05/29/17at 23:16; Start 05/29/17 at 23:00; Stop 05/30/17 at 03:00; Status DC Vancomycin HCl 1000 mg/Sodium Chloride 250 ml @ 250 mls/hr ONCE ONCE IV Last administered on 05/29/17at 21:35; Start 05/29/17 at 20:30; Stop 05/29/17 at 21:29; Status DC Vancomycin HCl 1500 mg/Sodium Chloride 515 ml @ 257.5 mls/ hr Q12H IV Last administered on 05/30/17at 23:42; Start 05/30/17 at 11:00 A/P Assessment and Plan A/P Severe hypoglycemia, likely secondary to long-acting insulin use resolved. continue on Levemir and accu-check with SSI. CHF- acute systolic echo with EF 40-45%. started on Laix- of note , the findings and plan were d/w the patient in detail- cardiology evaluation was offered but after a lengthy discussion the patient decided to sign out against medical advice. Discharge Planning not ready for discharge- but patient is going to sign out AMA. d/w the RN at the bedside. Yazmin Avelar MD May 31, 2017 08:37
--- NOTE | 2017-05-31 08:51 | HHI.DS ---
Discharge Summary Admission Date May 29, 2017 at 22:03 Discharge Date: May 31, 2017 Admitting Diagnosis sepsis, hypoglycemia, scrotal edema (1) CHF (congestive heart failure) ICD Code: I50.9 - Heart failure, unspecified Diagnosis: Principal (2) Scrotal edema ICD Code: N50.89 - Other specified disorders of the male genital organs Diagnosis: Principal Status: Acute Procedures none Brief History - From Admission 8-year-old male with a history of insulin-dependent diabetes, chronic low back pain who presented with scrotal swelling and pain. The patient reports at least 2 days of progressive scrotal swelling. He does state that intermittently his legs swell "because of his diabetes". He denies chest pain, orthopnea, dyspnea on exertion, fever, chills, purulent drainage from his scrotum or penis. His review of systems is otherwise unremarkable. He has a normal white count, is afebrile. He does have an elevated BNP at 800. CBC/BMP: 05/31/17 0523 05/31/17 0523 Significant Findings Laboratory Tests Test 05/29/17 20:30 05/30/17 00:25 05/30/17 03:31 05/31/17 05:23 Red Blood Count 4.46 MIL/MM3 (4.50-5.90) 4.46 MIL/MM3 (4.50-5.90) Hemoglobin 12.0 GM/DL (13.0-17.0) 12.0 GM/DL (13.0-17.0) 12.1 GM/DL (13.0-17.0) Hematocrit 36.3 % (39.0-51.0) 36.8 % (39.0-51.0) 36.4 % (39.0-51.0) Mean Corpuscular Hemoglobin 26.9 PG (27.0-34.0) 26.7 PG (27.0-34.0) Monocytes (%) (Auto) 13.1 % (0.0-8.0) 12.0 % (0.0-8.0) Lymphocytes # (Auto) 0.9 TH/MM3 (1.0-4.8) Blood Urea Nitrogen 24 MG/DL (7-18) 21 MG/DL (7-18) 19 MG/DL (7-18) Random Glucose 40 MG/DL (74-106) 148 MG/DL (74-106) 107 MG/DL (74-106) Albumin 2.9 GM/DL (3.4-5.0) 2.8 GM/DL (3.4-5.0) Alkaline Phosphatase 170 U/L (45-117) 157 U/L (45-117) Aspartate Amino Transf (AST/SGOT) 40 U/L (15-37) 41 U/L (15-37) B-Type Natriuretic Peptide 805 PG/ML (0-100) Calcium Level 8.3 MG/DL (8.5-10.1) Eosinophils (%) (Auto) 7.3 % (0.0-4.0) Eosinophils # (Auto) 0.5 TH/MM3 (0-0.4) Estimat Glomerular Filtration Rate 79 ML/MIN (>89) Imaging Last Impressions Abdomen/Pelvis CT 05/29/172009 Signed Impressions: Service Date/Time: May 20:31 - CONCLUSION: Fluid within the scrotum bilaterally. Diffuse anasarca. Small right pleural effusion. No acute obstructive uropathy or bowel obstruction. Mild chronic compression deformity involving L5. Nazario Hernandez MD Scrotum Ultrasound 05/29/17 0000 Signed Impressions: Service Date/Time: May 20:48 - CONCLUSION: Small bilateral hydroceles. No intratesticular mass, testicular torsion or acute epididymo- orchitis. Nazario Hernandez MD Lumbar Spine CT 05/29/17 0000 Signed Impressions: Service Date/Time: May 20:31 - CONCLUSION: Mild chronic compression deformity involving L5. No acute compression fracture, spondylolisthesis or spondylolysis. Moderate right neural foraminal narrowing at L4-5 and L5-S1. Nazario Hernandez MD PE at Discharge GENERAL: This is a well-nourished, well-developed patient, in no apparent distress. CARDIOVASCULAR: Regular rate and regular rhythm without murmurs, gallops, or rubs. RESPIRATORY: Clear to auscultation. Breath sounds equal bilaterally. No wheezes , rales, or rhonchi. GASTROINTESTINAL: Abdomen soft, non-tender, nondistended. Normal, active bowel sounds MUSCULOSKELETAL: Extremities with bilateral pedal edema. NEURO: Alert & Oriented x4 to person, place, time, situation. Moves all ext x4 Hospital Course Severe hypoglycemia, likely secondary to long-acting insulin use resolved. continue on Levemir and accu-check with SSI. CHF- acute systolic echo with EF 40-45%. started on Laix- Pt Condition on Discharge: Fair Discharge Disposition: Discharge Home (patient signed out against medical advice.) Discharge Time: <= 30 minutes Yazmin Avelar MD May 31, 2017 08:51
[2017-05-31] MEDS ORDERED: INSULIN DETEMIR 100 UNITS/ML VIAL SQ SCH (09:00)
[2017-05-31] MEDS: RESP: ALBUTEROL 2.5 MG/IPRATROPIUM 0.5 MG NEB (SCH) INH (09:25)
[2017-05-31] MEDS ORDERED: PHARMACY ORDERED LAB ONE (10:45)
== END 2017-05-31 09:46 | disposition left against medical advice (07) | DRG 293 ==
LOC: NEPE 18:53 → NEDA 22:03 → N03A 05-30 00:13 → N05B 05-30 16:00
PROVIDERS: ADMIT Internal Medicine; ATTEND Internal Medicine
DX: I50.21 Acute systolic (congestive) heart failure (principal); E11.649 Type 2 diabetes mellitus with hypoglycemia without coma; N50.89 Other specified disorders of the male genital organs; Z79.4 Long term (current) use of insulin; M54.5 Low back pain; G89.29 Other chronic pain; K21.9 Gastro-esophageal reflux disease without esophagitis; F17.210 Nicotine dependence, cigarettes, uncomplicated; R60.1 Generalized edema
CPT/HCPCS: 72131; 74176; 76870; 80048; 80053; 82948; 83605; 83690; 83880; 85025; 85027; 85610; 85730; 87040; 87641; 93005; 93306; 93975; 94640; 94664; 96365; 96367; 96375; J1650; J1815; J1940; J2270; J2543; J3370; J7040; J7050

== ENCOUNTER 2017-07-29 08:54 | Inpatient (IN) | payer OTHER ==
[~2017-07-29] VITALS: Ht 167.6 cm; Wt 99.0 kg
[~2017-07-29 08:54] MED LIST changes: -BENA25TA3 PO; -HYDR-3535 PO; +HYDR-3583 PO
[2017-07-29 09:00] VITALS: BP 176/100; PULSE 98; RESP 17; TEMP 98.6; O2SAT 99
[2017-07-29] MEDS ORDERED: TETANUS/DIPHTHERIA TOXOID ADULT 0.5 ML VIAL IM ONE (09:15)
[2017-07-29] MEDS ORDERED: LIDOCAINE HCL 1% 50 ML VIAL INFIL ONE (09:30)
--- NOTE | 2017-07-29 09:36 | PD ---
HPI Chief Complaint: Fall Time Seen by Provider: 09:07 Travel History International Travel<30 days: No Contact w/Intl Traveler<30days: No Traveled to known affect area: No History of Present Illness HPI Is a 62-year-old man who presents to the emergency department with hypoglycemia and fall. Apparently was at [facility] when he collapsed. His small laceration to the left brow. He was found unresponsive with a blood sugar in the 30s. He was given D10 and has improved. He still has repetitive questioning with confusion. He apparently is on Lantus and Humalog, but cannot recall when he took it last or if he ate today. Denies alcohol use. Had recent admission at the beginning of May for hypoglycemia also. Complains a little bit of pain at the base of his right thumb. No other complaints. History Past Medical History Narrative Medical Diabetes GERD Hepatitis C Social History Alcohol Use: No Tobacco Use: No Allergies-Medications (Allergen,Severity, Reaction): Coded Allergies: No Known Allergies (Unverified Allergy, Unknown, 05/29/17) Reported Meds & Prescriptions Reported Meds & Active Scripts Active Reported Hydrocodone-Acetaminophen 10-325 mg Tab 1 Tab PO Q6H PRN Ibuprofen 200 Mg Tab 200 Mg PO Q6H PRN Omeprazole 40 Mg Cap 40 Mg PO DAILY Humalog Inj (Insulin Human Lispro) 1,000 Unit/10 Ml Vial 2-12 Units SQ ACHS Max dose at bedtime:( )units; sugars < 70,(0)units; sugars 150-199,(2)units; sugars 200-249,(4)units; sugars 250-299,(7)units; sugars 300-349,(10)units; sugars more than 349,(12)units. Lantus Inj (Insulin Glargine) 100 Unit/Ml Inj 30 Units SQ BID Review of Systems Except as stated in HPI: all other systems reviewed are Neg Physical Exam Narrative GENERAL: Well-appearing 62-year-old man, no acute distress. Some repetitive questioning. SKIN: Focused skin assessment warm/dry. HEAD: Normocephalic, approximately 8 mm laceration to the left brow. EYES: Pupils equal and round. No scleral icterus. No injection or drainage. ENT: No nasal bleeding or discharge. Mucous membranes pink and moist. NECK: Trachea midline. No JVD. CARDIOVASCULAR: Regular rate and rhythm. No murmur appreciated. RESPIRATORY: No accessory muscle use. Clear to auscultation. Breath sounds equal bilaterally. GASTROINTESTINAL: Abdomen soft, non-tender, nondistended. Hepatic and splenic margins not palpable. MUSCULOSKELETAL: No obvious deformities. Minimal pain at the base of the right thumb. Is no deformity. Full range of motion. Good strength. NEUROLOGICAL: Awake and alert. No obvious cranial nerve deficits. Motor grossly within normal limits. Normal speech. PSYCHIATRIC: Appropriate mood and affect; insight and judgment normal. Data Data Last Documented VS Vital Signs Date Time Temp Pulse Resp B/P (MAP) Pulse Ox O2 Delivery O2 Flow Rate FiO2 07/29/17 11:42 98 17 139/77 (97) 100 Room Air 07/29/17 09:[address] Brain W/O Iv Contrast(Rout) (07/29/17 ) Iv Access Insert/Monitor (07/29/17 09:07) Complete Blood Count With Diff (07/29/17 09:07) Comprehensive Metabolic Panel (07/29/17 09:07) Diet Regular Basic (07/29/17 Breakfast) Tetanus/Diphtheria Tox Adult (Tetanus/Di (07/29/17 09:15) Alcohol (Ethanol) (07/29/17 09:19) Lidocaine 1% Inj (50 Ml) (Xylocaine 1% I (07/29/17 09:30) Hand, Complete ([id number]) (07/29/17 ) Blood Glucose (07/29/17 10:21) Blood Glucose (07/29/17 11:21) Hand, Limited (2vws) (07/29/17 ) Admit Order (Ed Use Only) (07/29/17 ) Labs Laboratory Tests Test 07/29/17 09:17 White Blood Count 8.6 TH/MM3 Red Blood Count 4.95 MIL/MM3 Hemoglobin 12.7 GM/DL Hematocrit 38.5 % Mean Corpuscular Volume 77.8 FL Mean Corpuscular Hemoglobin 25.6 PG Mean Corpuscular Hemoglobin Concent 32.9 % Red Cell Distribution Width 16.3 % Platelet Count 263 TH/MM3 Mean Platelet Volume 8.6 FL Neutrophils (%) (Auto) 79.7 % Lymphocytes (%) (Auto) 8.6 % Monocytes (%) (Auto) 10.3 % Eosinophils (%) (Auto) 0.9 % Basophils (%) (Auto) 0.5 % Neutrophils # (Auto) 6.8 TH/MM3 Lymphocytes # (Auto) 0.7 TH/MM3 Monocytes # (Auto) 0.9 TH/MM3 Eosinophils # (Auto) 0.1 TH/MM3 Basophils # (Auto) 0.0 TH/MM3 CBC Comment DIFF FINAL Differential Comment Blood Urea Nitrogen 15 MG/DL Creatinine 0.84 MG/DL Random Glucose 150 MG/DL Total Protein 7.1 GM/DL Albumin 3.1 GM/DL Calcium Level 8.4 MG/DL Alkaline Phosphatase 185 U/L Aspartate Amino Transf (AST/SGOT) 52 U/L Alanine Aminotransferase (ALT/SGPT) 60 U/L Total Bilirubin 0.5 MG/DL Sodium Level 136 MEQ/L Potassium Level 4.3 MEQ/L Chloride Level 104 MEQ/L Carbon Dioxide Level 23.5 MEQ/L Anion Gap 9 MEQ/L Estimat Glomerular Filtration Rate 93 ML/MIN MDM Medical Decision Making Medical Screen Exam Complete: Yes Emergency Medical Condition: Yes Interpretation(s) LABS: CBC is unremarkable CMP is unremarkable Bilateral hand x-rays negative CT head negative for acute findings in the brain. Left periorbital soft tissue swelling. Differential Diagnosis Hypoglycemia, fall, head injury, other Narrative Course Medical decision making 8-year-old man with hypoglycemia and fall. Some repetitive questioning. Laceration of the left brow. Possible right thumb injury. Looks well. Recent history of the same. Unclear if he ate this morning at home much insulin he took. Got D10 with EMS. Will feed him, CT head, repair the laceration, update his tetanus. FINAL: Patient remains profoundly confused, amnestic not just to the event, but to a day or so prior. Does not really recall where he is not as repetitive questioning. Possible concussion, possible encephalopathy. Will recommend admission for monitoring. Procedures Procedure Narrative LACERATION LOCATION: Left brow LENGTH: 8 mm NUMBER OF STITCHES/FILIPE: 3 REPAIR: The area of the laceration was prepped with Betadine and sterilely draped. The laceration was infiltrated with 1% lidocaine. The wound was copiously irrigated and explored without evidence of foreign body, tendon injury or neurovascular injury. The wound was closed using 6-0 Prolene. This was a single layer repair. A sterile dressing was applied. The patient was advised to keep the dressing clean and dry. Patient tolerated the procedure well. Physician Communication Physician Communication Spoke with the family medicine admitting team, will admit patient. Diagnosis Primary Impression: Hypoglycemia Additional Impressions: Closed head injury Confusion Admitting Information Admitting Physician Requests: Observation Juan Carlos Mejia MD July 29, 2017 09:35
[2017-07-29 09:42] LABS: AUTOMATED NEUTROPHIL # 6.8 TH/MM3 (1.8-7.7); BASOPHIL % 0.5 % (0.0-2.0); EOSINOPHIL # 0.1 TH/MM3 (0-0.4); EOSINOPHIL % 0.9 % (0.0-4.0); HEMATOCRIT 38.5 % (39.0-51.0); HEMOGLOBIN 12.7 GM/DL (13.0-17.0); LYMPH % 8.6 % (9.0-44.0); LYMPHOCYTE # 0.7 TH/MM3 (1.0-4.8); MEAN CELL VOLUME 77.8 FL (80.0-100.0); MEAN CORPUSCULAR HEMOGLOBIN 25.6 PG (27.0-34.0); MEAN CORPUSCULAR HGB CONC 32.9 % (32.0-36.0); MEAN PLATELET VOLUME 8.6 FL (7.0-11.0); MONO % 10.3 % (0.0-8.0); MONOCYTE # 0.9 TH/MM3 (0-0.9); NEUT % 79.7 % (16.0-70.0); PLATELET COUNT 263 TH/MM3 (150-450); RED BLOOD COUNT 4.95 MIL/MM3 (4.50-5.90); RED CELL DISTRIBUTION WIDTH 16.3 % (11.6-17.2); WHITE BLOOD COUNT 8.6 TH/MM3 (4.0-11.0)
[2017-07-29 09:56] LABS: ALBUMIN 3.1 GM/DL (3.4-5.0); ALT (GPT) 60 U/L (12-78); AST (GOT) 52 U/L (15-37); BICARBONATE 23.5 MEQ/L (21.0-32.0); BLOOD UREA NITROGEN 15 MG/DL (7-18); CALCIUM 8.4 MG/DL (8.5-10.1); CHLORIDE 104 MEQ/L (98-107); CREATININE 0.84 MG/DL (0.60-1.30); GLOMERULAR FILTRATION RATE 93 ML/MIN (>89); GLUCOSE,RANDOM 150 MG/DL (74-106); SODIUM (NA) 136 MEQ/L (136-145)
[2017-07-29 09:59] LABS: ALKALINE PHOSPHATASE 185 U/L (45-117); TOTAL BILIRUBIN ADULT 0.5 MG/DL (0.2-1.0); TOTAL PROTEIN 7.1 GM/DL (6.4-8.2)
--- NOTE | 2017-07-29 10:00 | RADRPT ---
EXAM DATE/TIME: 07/29/2017 09:47 [facility] COMPARISON: No previous studies available for comparison. INDICATIONS : Fall. Left forehead laceration. RADIATION DOSE: 56.35 CTDIvol (mGy) MEDICAL HISTORY : Cardiovascular disease. SURGICAL HISTORY : None. ENCOUNTER: Initial ACUITY: 1 day PAIN SCALE: 0/10 LOCATION: Left cranial TECHNIQUE: Multiple contiguous axial images were obtained of the head. Using automated exposure control and adj ustment of the mA and/or kV according to patient size, radiation dose was kept as low as reasonably a chievable to obtain optimal diagnostic quality images. DICOM format image data is available electro nically for review and comparison. FINDINGS: CEREBRUM: The ventricles are normal for age. No evidence of midline shift, mass lesion, hemorrhage or acute in farction. No extra-axial fluid collections are seen. POSTERIOR FOSSA: The cerebellum and brainstem are intact. The 4th ventricle is midline. The cerebellopontine angle i s unremarkable. EXTRACRANIAL: Mild soft tissue swelling of the left periorbital region. No radiopaque foreign bodies or fracture s een. SKULL: The calvaria is intact. No evidence of skull fracture. CONCLUSION: 1. No acute findings in the brain. 2. Left periorbital soft tissue swelling. Edgardo Thakkar MD on July 29, 2017 at 9:56 Board Certified Radiologist. This report was verified electronically.
[2017-07-29 11:42] VITALS: BP 139/77; PULSE 98; RESP 17; O2SAT 100
--- NOTE | 2017-07-29 11:48 | RADRPT ---
EXAM DATE/TIME: 07/29/2017 10:39 [facility] COMPARISON: No previous studies available for comparison. INDICATIONS : Unknown injury, pain right thumb base. MEDICAL HISTORY : Diabetes mellitus type I. SURGICAL HISTORY : None. ENCOUNTER: Initial ACUITY: 1 day PAIN SCORE: 9/10 LOCATION: Right hand FINDINGS: Three view examination of the right hand demonstrates no soft tissue swelling, dislocation, or fractu re. The carpal bones appear intact. The interphalangeal and metacarpophalangeal joints are intact. Bony mineralization is normal. Vascular calcification about the lateral wrist and distal forearm. CONCLUSION: No evidence of recent bony injury. Edgardo Thakkar MD on July 29, 2017 at 11:45 Board Certified Radiologist. This report was verified electronically.
--- NOTE | 2017-07-29 11:51 | RADRPT ---
EXAM DATE/TIME: 07/29/2017 10:45 [facility] COMPARISON: No previous studies available for comparison. INDICATIONS : Unknown injury, multiple abrasions to back of hand and fingers, pain left ring finger, unable to dennys ve ring. MEDICAL HISTORY : Diabetes mellitus type I. SURGICAL HISTORY : None. ENCOUNTER: Initial ACUITY: 1 day PAIN SCORE: 7/10 LOCATION: Left hand. FINDINGS: Two view examination of the left hand demonstrates no soft tissue swelling, dislocation, or fracture. The joint spaces are maintained. Bony mineralization is normal. Metallic ring on the 4th digit o bscures a portion of the proximal phalanx. CONCLUSION: No evidence of recent bony injury. Edgardo Thakkar MD on July 29, 2017 at 11:49 Board Certified Radiologist. This report was verified electronically.
--- NOTE | 2017-07-29 12:30 | HHI.HP ---
HPI Service Family Medicine Primary Care Physician Unknown Admission Diagnosis Hypoglycemia, fall, confusion Diagnoses: International Travel<30 Days: No Contact w/Intl Traveler<30days: No Known Affected Area: No History of Present Illness Patient is a poor historian. Per ED note: Patient suffered a witnessed fall and was found to have blood sugar in the 30s by EMS. Patient reported this morning fasting glucose was 27 after which he consumed a lot of chocolate chip cookies and took his regular Lantus (36 units) and Humalog (5 units) insulin doses. His BG increased to the 40s. He remembers taking a medical transportation van to his appointment with PCP Dr. Aguilar at [facility] [address]. However, he does not the events leading to fall. He does not remember losing consciousness, falling, whether he actually saw his PCP or being brought by EMS to the emergency room. Patient states he does not quite remember the events during the past 2 days. He reports that this past week he had about 2-3 episodes of hypoglycemia with blood sugars in the 30s. Denies any tongue biting, bladder or urine incontinence, jerking movements of extremities. Denies chest pain, palpitations, history of seizures, vision changes, new medications, or recent changes in insulin dosing. He also reports mild pain that he attributes to the fall on right shoulder, right thumb and left ring finger. Of note patient is alert and oriented 3 during interview. (Surya Sprague MD, R1) Review of Systems Constitutional: DENIES: Diaphoretic episodes, Fever, Chills, Dizziness, Change in appetite Eyes: DENIES: Blurred vision, Eye pain, Vision loss Ears, nose, mouth, throat: DENIES: Vertigo Respiratory: COMPLAINS OF: Shortness of breath, DENIES: Cough Cardiovascular: COMPLAINS OF: Lower Extremity Edema, DENIES: Chest pain, Palpitations Gastrointestinal: COMPLAINS OF: Diarrhea, DENIES: Abdominal pain, Nausea, Vomiting Musculoskeletal: COMPLAINS OF: Back pain Integumentary: DENIES: Rash Hematologic/lymphatic: DENIES: Bruising Neurologic: DENIES: Headache, Localized weakness, Seizures Psychiatric: COMPLAINS OF: Confusion (Surya Sprague MD, R1) Past Family Social History Past Medical History chronic back pain DM CHF?, has not been taking lasix the last couple of days GERD Past Surgical History catarac surgery surgery of left hand due to wound repair Left shoulder repair Reported Medications Reported Meds & Active Scripts Active Reported Hydrocodone-Acetaminophen 10-325 mg Tab 1 Tab PO Q6H PRN Omeprazole 40 Mg Cap 40 Mg PO DAILY Humalog Inj (Insulin Human Lispro) 1,000 Unit/10 Ml Vial 2-12 Units SQ ACHS Max dose at bedtime:( )units; sugars < 70,(0)units; sugars 150-199,(2)units; sugars 200-249,(4)units; sugars 250-299,(7)units; sugars 300-349,(10)units; sugars more than 349,(12)units. 5 units before breakfast Lantus Inj (Insulin Glargine) 100 Unit/Ml Inj 36 am and 33 at night Units SQ BID , 1 yr with this regimen lasix 20mg, last used 2 days ago (Surya Sprague MD, R1) Allergies: Coded Allergies: No Known Allergies (Unverified Allergy, Unknown, 05/29/17) Family History mother, brother- DM mother- heart disease Social History Patient lives alone in a van stationed in his friend's backyard Ambulates with cane at baseline due to chronic back pain He is on disability due to mental and physical disability Smokes 1 pack of cigars per wk, less than 10yrs Denies alcohol or illicit drug use (Surya Sprague MD, R1) Physical Exam Vital Signs Vital Signs Date Time Temp Pulse Resp B/P (MAP) Pulse Ox O2 Delivery O2 Flow Rate FiO2 07/29/17 11:42 98 17 139/77 (97) 100 Room Air 07/29/17 09:00 98.6 98 17 176/100 (125) 99 Physical Exam GENERAL: This is a well-nourished, well-developed patient, in no apparent distress. SKIN: No rashes, scraped with dried blood along left eye brow and and on dorsal aspect of hand BL. Cool and dry. HEAD: Atraumatic. Normocephalic. No temporal or scalp tenderness. EYES: Pupils equal round and reactive. Extraocular motions intact. No scleral icterus. No injection or drainage. ENT: Nose without bleeding, purulent drainage or septal hematoma. Throat without erythema, tonsillar hypertrophy or exudate. Uvula midline. Airway patent. NECK: Trachea midline. No JVD or lymphadenopathy. Supple, nontender, no meningeal signs. CARDIOVASCULAR: Normal S1 and S2. Regular rate and rhythm without murmurs, gallops, or rubs. RESPIRATORY: mild exp wheezes on upper lung bases BL, No rales, or rhonchi. GASTROINTESTINAL: Abdomen soft, non-tender, slightly distended. No hepato- splenomegaly, or palpable masses. No guarding. MUSCULOSKELETAL: Extremities without clubbing, cyanosis, or edema. No joint tenderness, effusion, or edema noted. No calf tenderness. +2DP pulses BL. NEUROLOGICAL: Awake and alert. AAOx3. Cranial nerves II through XII intact. Motor and sensory grossly within normal limits. Five out of 5 muscle strength in all muscle groups. mild tenderness to palpation of Left ring finger and Right thumb. Normal sensation. Normal speech, tangental. No focal neuro deficits. Laboratory Laboratory Tests Test 07/29/17 09:17 White Blood Count 8.6 Red Blood Count 4.95 Hemoglobin 12.7 Hematocrit 38.5 Mean Corpuscular Volume 77.8 Mean Corpuscular Hemoglobin 25.6 Mean Corpuscular Hemoglobin Concent 32.9 Red Cell Distribution Width 16.3 Platelet Count 263 Mean Platelet Volume 8.6 Neutrophils (%) (Auto) 79.7 Lymphocytes (%) (Auto) 8.6 Monocytes (%) (Auto) 10.3 Eosinophils (%) (Auto) 0.9 Basophils (%) (Auto) 0.5 Neutrophils # (Auto) 6.8 Lymphocytes # (Auto) 0.7 Monocytes # (Auto) 0.9 Eosinophils # (Auto) 0.1 Basophils # (Auto) 0.0 CBC Comment DIFF FINAL Differential Comment Blood Urea Nitrogen 15 Creatinine 0.84 Random Glucose 150 Total Protein 7.1 Albumin 3.1 Calcium Level 8.4 Alkaline Phosphatase 185 Aspartate Amino Transf (AST/SGOT) 52 Alanine Aminotransferase (ALT/SGPT) 60 Total Bilirubin 0.5 Sodium Level 136 Potassium Level 4.3 Chloride Level 104 Carbon Dioxide Level 23.5 Anion Gap 9 Estimat Glomerular Filtration Rate 93 (Surya Sprague MD, R1) Result Diagram: 07/29/1791607/29/17916 Imaging Last Impressions Head CT 07/29/17 0000 Signed Impressions: Service Date/Time: Saturday, July 29, 2017 09:47 - CONCLUSION: 1. No acute findings in the brain. 2. Left periorbital soft tissue swelling. Edgardo Thakkar MD Hand X-Ray 07/29/17 0000 Signed Impressions: Service Date/Time: Saturday, July 29, 2017 10:45 - CONCLUSION: No evidence of recent bony injury. Edgardo Thakkar MD (Surya Sprague MD, R1) Caprini VTE Risk Assessment Caprini VTE Risk Assessment: Mod/High Risk (score >= 2) Caprini Risk Assessment Model Point Value = 1 Point Value = 2 Point Value = 3 Point Value = 5 Age 41-60 Minor surgery BMI > 25 kg/m2 Swollen legs Varicose veins or History of unexplained or recurrent spontaneous Oral contraceptives or hormone replacement Sepsis (< 1 month) Serious lung disease, including pneumonia (< 1 month) Abnormal pulmonary function Acute myocardial infarction Congestive heart failure (< 1 month) History of inflammatory bowel disease Medical patient at bed rest Age 61-74 Arthroscopic surgery Major open surgery (> 45 min) Laparoscopic surgery (> 45 min) Malignancy Confined to bed (> 72 hours) Immobilizing plaster cast Central venous access Age >= 75 History of VTE Family history of VTE Factor V Leiden Prothrombin [id number] Lupus anticoagulant Anticardiolipin antibodies Elevated serum homocysteine Heparin-induced thrombocytopenia Other congenital or acquired thrombophilia Stroke (< 1 month) Elective arthroplasty Hip, pelvis, or leg fracture Acute spinal cord injury (< 1 month) Prophylaxis Regimen Total Risk Factor Score Risk Level Prophylaxis Regimen 0-1 Low Early ambulation 2 Moderate Order ONE of the following: *Sequential Compression Device (SCD) *Heparin 5000 units SQ BID 3-4 Higher Order ONE of the following medications: *Heparin 5000 units SQ TID *Enoxaparin/Lovenox 40 mg SQ daily (WT < 150 kg, CrCl > 30 mL/min) *Enoxaparin/Lovenox 30 mg SQ daily (WT < 150 kg, CrCl > 10-29 mL/min) *Enoxaparin/Lovenox 30 mg SQ BID (WT < 150 kg, CrCl > 30 mL/min) AND/OR *Sequential Compression Device (SCD) 5 or more Highest Order ONE of the following medications: *Heparin 5000 units SQ TID (Preferred with Epidurals) *Enoxaparin/Lovenox 40 mg SQ daily (WT < 150 kg, CrCl > 30 mL/min) *Enoxaparin/Lovenox 30 mg SQ daily (WT < 150 kg, CrCl > 10-29 mL/min) *Enoxaparin/Lovenox 30 mg SQ BID (WT < 150 kg, CrCl > 30 mL/min) AND *Sequential Compression Device (SCD) (Surya Sprague MD, R1) Assessment and Plan Assessment and Plan 62 yo male with past medical history of diabetes and GERD presents with: Code Status full code Discussed Condition With SDW Dr. Brown and Dr. Bailey (Surya Sprague MD, R1) Attending Attestation The patient has been seen and examined. The chart and all resident notes have been reviewed. I agree that inpatient care is appropriate and that a two midnight stay is expected for the reasons documented in the resident history and physical. I have discussed this with the resident and certify the resident s order for inpatient admission. Patient seen and examined. Case reviewed and discussed Please refer to resident H&P for further details regarding HPI, ROS, PMH, SurgHx , FH and SocHx In summary, patient is a 62yoM with a history of hypoglycemia found unresponsive today with glucose in the 30s. He was brought to the ED after his witnessed fall and suffering multiple abrasions to the L face, ear and hands. He has some confusion with questioning, not sure of all events that have taken place over the last several days not sure of his last lantus dose not sure of his last meal. GENERAL: Disheveled male, sitting up in bed, talkative. NAD SKIN: Warm and dry. Multiple scattered abrasions over the face, L ear, L orbit with laceration repair. HEAD: Normocephalic. Head as above. EYES: No scleral icterus. No injection or drainage. Ecchymoses leslye-orbitally, L eye NECK: Supple, trachea midline. No JVD or lymphadenopathy. CARDIOVASCULAR: Regular rate and rhythm without audible murmurs, gallops, or rubs. RESPIRATORY: Breath sounds equal and clear bilaterally. No accessory muscle use. GASTROINTESTINAL: Abdomen soft, non-tender, nondistended. No rebound. MUSCULOSKELETAL: No cyanosis, or edema. There is a R second toe chronic eschar. No drainage. Peripheral neuropathy bilateral feet. BACK: Nontender without obvious deformity. No CVA tenderness. NEURO: awake and alert. Normal speech. Repetitive questioning. No gross motor deficits. A/P: 62yoM with: Severe hypoglycemia Metabolic encephalopathy Chronic compensated systolic CHF uncontrolled DM GERD D5 IVF Accuchecks q2h r/o infectious cause Neurochecks UDS BNP Hold all insulin Check C-peptide, proinsulin Resume home meds as appropriate Patient seen and examined. Case reviewed and discussed Agree with plan of care as discussed with me and documented in the resident note. (Chica Brown MD) Problem List: (1) Hypoglycemia ICD Codes: E16.2 - Hypoglycemia, unspecified Status: Acute Plan: Patient stated he has BG of 27 this am and reports multiple episode of hypoglycemia this wk with BG in the 30s Patient brought in by EMS due to a witnessed fall and BG found to be in the 30s Patient with continued AMS in the ED. AAOx3 during admission interview. Echo 05/30/17: EF 40-45% On admission B Bedside glucose range: 154-97-99 patient with multiple episode of hypoglycemia, may need readjustment of insulin regimen hold home insulin for now Monitor bed side blood sugar Q2 hrs hypoglycemia protocol IVF CT head: No acute findings in the brain. Left periorbital soft tissue swelling X-rays of hands BL: No evidence of recent bone injury PT consulted for evaluation Follow-up: Brain MRI Carotid ultrasound UDS and UA Prolactin and CK Blood cultures (2) Diabetes type 2, uncontrolled ICD Codes: E11.65 - Type 2 diabetes mellitus with hyperglycemia Status: Chronic Plan: Patient with home insulin regimen: Lantus 36 units am and 33 units HS humalog 5 units before breakfast see plan above (3) GERD (gastroesophageal reflux disease) ICD Codes: K21.9 - Gastro-esophageal reflux disease without esophagitis Status: Chronic Plan: stable c/w omeprazole (4) Chronic venous insufficiency ICD Codes: I87.2 - Venous insufficiency (chronic) (peripheral) Status: Chronic Plan: stable, no LE edema noted on exam c/w lasix 20mg QD (5) Nutrition, metabolism, and development symptoms ICD Codes: R63.8 - Other symptoms and signs concerning food and fluid intake Plan: Fluids: 100mls/hr Electrolytes: WNL, replete as needed Nutrition: diabetic diet DVT ppx: lovenox 40mg Q24h (Surya Sprague MD, R1) Surya Sprague MD, R1 July 29, 2017 12:30 Chica Brown MD July 29, 2017 21:49
[2017-07-29] MEDS: SODIUM CHLORIDE 0.9% FLUSH 10 ML FLUSH IV FLUSH SCH ×2 (13:15→21:00)
[2017-07-29] MEDS ORDERED: BISACODYL 10 MG SUPP RECTAL PRN (13:15)
[2017-07-29] MEDS ORDERED: SENNOSIDES 8.6 MG TAB PO PRN (13:15)
[2017-07-29] MEDS ORDERED: NALOXONE HCL 0.4 MG/ML AMP IV PUSH PRN (13:15)
[2017-07-29] MEDS ORDERED: MAGNESIUM HYDROXIDE SUSP 30 ML CUP PO PRN (13:15)
[2017-07-29] MEDS ORDERED: SODIUM CHLORIDE 0.9% FLUSH 10 ML FLUSH IV FLUSH PRN (13:15)
[2017-07-29] MEDS ORDERED: LACTULOSE SYRUP 20 GM/30 ML CUP PO PRN (13:15)
[2017-07-29] MEDS ORDERED: SODIUM CHLOR 0.9% 1000 ML INJ 1,000 ML IV SCH (13:15)
[2017-07-29] MEDS ORDERED: IBUPROFEN 400 MG TAB PO PRN (13:45)
[2017-07-29 13:48] VITALS: BP 126/63; PULSE 75; RESP 17; O2SAT 100
[2017-07-29] MEDS ORDERED: GLUCAGON 1 MG/ML VIAL OTHER PRN (15:00)
[2017-07-29] MEDS ORDERED: D5-NS + KCL 40 MEQ INJ 1,000 ML IV ONE (15:00)
[2017-07-29] MEDS ORDERED: DEXTROSE 50% IN WATER 50 ML SYRINGE IV PUSH ONE (15:00)
[2017-07-29 15:23] VITALS: BP 130/73; PULSE 99; RESP 17; O2SAT 98
--- NOTE | 2017-07-29 15:25 | RADRPT ---
EXAM DATE/TIME: 07/29/2017 14:37 [facility] COMPARISON: No previous studies available for comparison. INDICATIONS : Syncope. Head trauma. MEDICAL HISTORY : Hypercholesterolemia. Sleep apnea. Gastroesophageal reflux disease. Diabetic neuropathy. Hiatal Herni a. Diabetes insulin dependant. SURGICAL HISTORY : Left thumb and shoulder surgery. Bilateral cataract surgery. Left retina repair. ENCOUNTER: Initial ACUITY: 1 day PAIN SCORE: 0/10 LOCATION: Bilateral neck PEAK SYSTOLIC VELOCITIES (cm/sec): ICA/CCA RATIO: Right: 2.2 Left: 0.8 ICA: Right: 203 Left: 94 CCA: Right: 94 Left: 111 ECA: Right: 105 Left: 125 VERTEBRAL: Right: 80 antegrade Left: 53 antegrade Elevated flow velocities and ICA/CCA ratios have been found to correlate with increased degrees of vessel stenosis, calculated as percentage of diameter relative to a normal segment of distal ICA/CCA FINDINGS: RIGHT CAROTID: No significant stenosis is visualized. There is widening of the internal carotid velocity spectrum w ith negative velocity components during systole.. LEFT CAROTID: No significant stenosis is visualized. The waveforms are within normal limits. VERTEBRAL ARTERIES: Antegrade flow is seen in both vertebral arteries. MISCELLANEOUS: None. CONCLUSION: 1. Abnormal hemodynamic profile on the right side suggesting 50-69 % stenosis. 2. Normal hemodynamic profile the left side. Edgardo Thakkar MD on July 29, 2017 at 15:21 Board Certified Radiologist. This report was verified electronically.
--- NOTE | 2017-07-29 17:08 | RADRPT ---
EXAM DATE/TIME: 07/29/2017 16:31 [facility] COMPARISON: CT BRAIN W/O CONTRAST, July 29, 2017, 9:47. INDICATIONS : Confusion. Fell and hit head. MEDICAL HISTORY : Diabetes mellitus type 2. SURGICAL HISTORY : Hiatal hernia. Cataracts. Left hand surgery. ENCOUNTER: Subsequent ACUITY: 1 day PAIN SCORE: 3/10 LOCATION: head. TECHNIQUE: Multiplanar, multisequence MRI of the brain was performed without contrast. FINDINGS: CEREBRUM: The ventricles are normal for age. No evidence of midline shift, mass lesion, hemorrhage or acute in farction. No extraaxial fluid collections are seen. The pituitary gland and suprasellar cistern are normal in configuration. WHITE MATTER: There are a few focal areas of T2 prolongation in the right kent radiata white matter, nonspecific in appearance. POSTERIOR FOSSA: The cerebellum and brainstem are intact. The 4th ventricle is midline. The cerebellopontine angle is unremarkable. The cerebellar tonsils are normal in position. DIFFUSION IMAGING: There are 2 small areas of restricted diffusion in the cortex of the right posterior parietal lobe, b oth measuring less than 4 mm in size, and both confirmed on ADC parametric images. No evidence of bl ood products or susceptibility artifact in these areas. EXTRACRANIAL: The visualized portions of the orbits and paranasal sinuses are unremarkable. Mild left periorbital and left zygomatic soft tissue thickening without significant T2 prolongation. There is an asymmetri c shape to the ocular globe on the left side, slightly elongated; this is of uncertain significance. No signal abnormalities in the soft tissues of the left orbit. CONCLUSION: 1. Few small focal areas of restricted diffusion in the superficial cortex of the posterior right par ietal lobe suggesting small infarctions without evidence of blood products. 2. Left lateral orbital soft tissue thickening without T2 prolongation. 3. Asymmetric shape to the left orbital globe, slightly elongated in AP dimension when compared to th e contralateral side. This is of uncertain significance. Edgardo Thakkar MD on July 29, 2017 at 16:59 Board Certified Radiologist. This report was verified electronically.
[2017-07-29] MEDS: FUROSEMIDE 20 MG TAB PO SCH (18:18)
[2017-07-29] MEDS: PANTOPRAZOLE SOD 40 MG DELAYED RELEASE TAB PO SCH (18:18)
[2017-07-29] MEDS: ENOXAPARIN SODIUM 40 MG/0.4 ML SYRINGE SQ SCH (18:19)
[2017-07-29 18:41] VITALS: BP 134/77; PULSE 75; RESP 17; O2SAT 100
[2017-07-29 21:47] VITALS: BP 133/78
[2017-07-29] MEDS ORDERED: ACETAMINOPHEN/HYDROcodone 325 MG/5 MG TAB PO PRN (23:15)
[2017-07-29] MEDS: SODIUM CHLORIDE 23.4% INJ 77 MEQ in DEXTROSE 10% INJ 1,000 ML IV SCH (23:33)
[2017-07-29] MEDS: ACETAMINOPHEN/HYDROcodone 325 MG/10 MG TAB PO PRN (23:34)
[2017-07-30] VITALS (12 sets, daily range): BP systolic 106–137; BP diastolic 59–79; PULSE 76–90; RESP 16–26; TEMP 97.1–98.7; O2SAT 96–100
[2017-07-30] MEDS ORDERED: CHLORHEXIDINE GLUCONATE 2 % 1 PACK (2 CLOTHS)(extra cloths) TOPICAL PRN (01:00)
[2017-07-30] MEDS: ACETAMINOPHEN/HYDROcodone 325 MG/10 MG TAB PO PRN ×4 (02:48→20:51)
[2017-07-30] MEDS: CHLORHEXIDINE GLUCONATE 2 % 1 PACK (2 CLOTHS)(taper/protocol) TOPICAL SCH (04:00)
[2017-07-30 04:04] LABS: HEMOGLOBIN 11.8 GM/DL (13.0-17.0); MEAN CORPUSCULAR HEMOGLOBIN 25.5 PG (27.0-34.0); MEAN CORPUSCULAR HGB CONC 32.7 % (32.0-36.0); MEAN PLATELET VOLUME 8.9 FL (7.0-11.0); PLATELET COUNT 244 TH/MM3 (150-450); RED BLOOD COUNT 4.62 MIL/MM3 (4.50-5.90); RED CELL DISTRIBUTION WIDTH 16.2 % (11.6-17.2); WHITE BLOOD COUNT 7.9 TH/MM3 (4.0-11.0)
[2017-07-30 04:26] LABS: ALBUMIN 2.9 GM/DL (3.4-5.0); AST (GOT) 45 U/L (15-37); BICARBONATE 23.7 MEQ/L (21.0-32.0); BLOOD UREA NITROGEN 21 MG/DL (7-18); CALCIUM 8.3 MG/DL (8.5-10.1); CHLORIDE 103 MEQ/L (98-107); GLOMERULAR FILTRATION RATE 76 ML/MIN (>89); GLUCOSE,RANDOM 84 MG/DL (74-106); SODIUM (NA) 136 MEQ/L (136-145)
[2017-07-30 04:30] LABS: ALKALINE PHOSPHATASE 160 U/L (45-117); ALT (GPT) 57 U/L (12-78); TOTAL BILIRUBIN ADULT 0.5 MG/DL (0.2-1.0); TOTAL PROTEIN 6.6 GM/DL (6.4-8.2)
[2017-07-30] MEDS: SODIUM CHLORIDE 23.4% INJ 77 MEQ in DEXTROSE 10% INJ 1,000 ML IV SCH ×2 (06:15→14:20)
[2017-07-30] MEDS: DEXTROSE 50% IN WATER 50 ML VIAL(D50) IV PUSH PRN ×2 (06:16→06:50)
[2017-07-30] MEDS: DOCUSATE SODIUM 50 MG/SENNA 8.6 MG TAB PO SCH ×2 (07:54→20:48)
[2017-07-30] MEDS: SODIUM CHLORIDE 0.9% FLUSH 10 ML FLUSH IV FLUSH SCH ×2 (07:54→20:48)
[2017-07-30] MEDS: PANTOPRAZOLE SOD 40 MG DELAYED RELEASE TAB PO SCH (07:54)
[2017-07-30] MEDS: FUROSEMIDE 20 MG TAB PO SCH (07:54)
--- NOTE | 2017-07-30 11:41 | PD.CONS ---
History of Present Illness Service Ophthalmology Consult Requested By Primary Care Physician Unknown Diagnoses: History of Present Illness 62 yo M who presented to ED after suffering a fall - was found to have blood sugar in the 30s by EMS. MRI brain - Few small focal areas of restricted diffusion in the superficial cortex of the posterior right parietal lobe suggesting small infarctions without evidence of blood products, Left lateral orbital soft tissue thickening without T2 prolongation, Asymmetric shape to the left orbital globe, slightly elongated in AP dimension when compared to the contralateral side. Patient reports an extensive ocular history - retinal detachment surgery OS in the 80s after a tree branch hit his eye, bilateral cataract surgery, severe proliferative diabetic retinopathy that has been treated with laser and injections by Dr. William Barrera. He states he has no change in his baseline vision, and no pain in either eye. Past Family Social History Allergies: Coded Allergies: No Known Allergies (Unverified Allergy, Unknown, 05/29/17) Physical Exam Vital Signs Vital Signs Date Time Temp Pulse Resp B/P (MAP) Pulse Ox O2 Delivery O2 Flow Rate FiO2 07/30/17 10:00 76 07/30/17 08:00 87 07/30/17 08:00 97.1 87 20 114/79 (91) 96 07/30/17 06:00 83 07/30/17 04:00 87 26 109/59 (76) 97 07/30/17 04:00 87 07/30/17 02:00 87 07/30/17 00:00 98.2 90 22 106/60 (75) 100 07/30/17 00:00 90 07/29/17 21:47 90 20 133/78 (96) 100 07/29/17 18:41 75 17 134/77 (96) 100 Room Air 07/29/17 15:23 99 17 130/73 (92) 98 Room Air 07/29/17 13:48 75 17 126/63 (84) 100 Room Air 07/29/17 11:42 98 17 139/77 (97) 100 Room Air Physical Exam Va cc at near OD 20/200, OS HM peripheral EOM full OU CVF unable Pupils 2-1 no APD OU IOP 14, 17 Anterior exam OD - normal eyelid, C/S W&Q, K clear, AC deep, pupil round, PCIOL OS - normal eyelid, C/S W&Q, K clear, AC deep, pupil round, PCIOL Dilated exam OD - ON s/p/f, ves normal, vit heme, DBH OS - ON s/p/f, ves normal, DBH, scleral buckle Laboratory Laboratory Tests Test 07/29/17 22:05 07/29/17 22:35 07/30/17 03:25 07/30/17 08:45 Nasal Screen MRSA (PCR) MRSA NOT DETECTED Lactic Acid Level 1.5 White Blood Count 7.9 Red Blood Count 4.62 Hemoglobin 11.8 Hematocrit 36.0 Mean Corpuscular Volume 78.0 Mean Corpuscular Hemoglobin 25.5 Mean Corpuscular Hemoglobin Concent 32.7 Red Cell Distribution Width 16.2 Platelet Count 244 Mean Platelet Volume 8.9 Blood Urea Nitrogen 21 Creatinine 1.00 Random Glucose 84 Total Protein 6.6 Albumin 2.9 Calcium Level 8.3 Alkaline Phosphatase 160 Aspartate Amino Transf (AST/SGOT) 45 Alanine Aminotransferase (ALT/SGPT) 57 Total Bilirubin 0.5 Sodium Level 136 Potassium Level 5.1 Chloride Level 103 Carbon Dioxide Level 23.7 Anion Gap 9 Estimat Glomerular Filtration Rate 76 Date/Time Source Procedure Growth Status 07/29/17 23:30 Blood Peripheral Aerobic Blood Culture Pending Received 07/29/17 23:30 Blood Peripheral Anaerobic Blood Culture Pending Received Result Diagram: 07/30/17 0325 07/30/17 0325 Assessment and Plan Problem List: (1) 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 No new ocular injury. (2) Proliferative diabetic retinopathy of both eyes ICD Codes: E11.3593 - Type 2 diabetes mellitus with proliferative diabetic retinopathy without macular edema, bilateral Plan: Follow up with as scheduled for further care. (3) Pseudophakia of both eyes ICD Codes: Z96.1 - Presence of intraocular lens Plan: s/p cataract surgery OU. Gayathri Munoz MD July 30, 2017 11:41
--- NOTE | 2017-07-30 13:41 | HHI.FPPN ---
Subjective Remarks Patient seen and examined at bedside. Overnight patient had episodes of hypoglycemia he received dextrose 15 mL 1, IV fluids with 10% dextrose running at 125 mL/hour and glucagon 1. Blood sugar this morning of 104. Patient is alert and oriented 3. Denies any pain and has been able to tolerate p.o. intake. (Surya Sprague MD, R1) Objective Vitals Vital Signs Date Time Temp Pulse Resp B/P (MAP) Pulse Ox O2 Delivery O2 Flow Rate FiO2 07/30/17 12:00 97.7 81 18 137/72 (93) 99 07/30/17 12:00 81 07/30/17 10:00 76 07/30/17 08:00 87 07/30/17 08:00 97.1 87 20 114/79 (91) 96 07/30/17 06:00 83 07/30/17 04:00 87 26 109/59 (76) 97 07/30/17 04:00 87 07/30/17 02:00 87 07/30/17 00:00 98.2 90 22 106/60 (75) 100 07/30/17 00:00 90 07/29/17 21:47 90 20 133/78 (96) 100 07/29/17 18:41 75 17 134/77 (96) 100 Room Air 07/29/17 15:23 99 17 130/73 (92) 98 Room Air 07/29/17 13:48 75 17 126/63 (84) 100 Room Air I/O 07/29/17 07/29/17 07/29/17 07/30/17 07/30/17 07/30/17 07:00 15:00 23:00 07:00 15:00 23:00 Intake Total 1426 ml Output Total 200 ml Balance 1226 ml Intake IV Total 1426 ml Output Urine Total 200 ml # Bowel Movements 0 (Surya Sprague MD, R1) Result Diagram: 07/30/17 0325 07/30/17 0325 Imaging Last Impressions Head CT 07/29/17 0000 Signed Impressions: Service Date/Time: Saturday, July 29, 2017 09:47 - CONCLUSION: 1. No acute findings in the brain. 2. Left periorbital soft tissue swelling. Edgardo Thakkar MD Hand X-Ray 07/29/17 0000 Signed Impressions: Service Date/Time: Saturday, July 29, 2017 10:45 - CONCLUSION: No evidence of recent bony injury. Edgardo Thakkar MD Carotid Artery Ultrasound 07/29/17 0000 Signed Impressions: Service Date/Time: Saturday, July 29, 2017 14:37 - CONCLUSION: 1. Abnormal hemodynamic profile on the right side suggesting 50-69 %% stenosis. 2. Normal hemodynamic profile the left side. Edgardo Thakkar MD Brain MRI 07/29/17 0000 Signed Impressions: Service Date/Time: Saturday, July 29, 2017 16:31 - CONCLUSION: 1. Few small focal areas of restricted diffusion in the superficial cortex of the posterior right parietal lobe suggesting small infarctions without evidence of blood products. 2. Left lateral orbital soft tissue thickening without T2 prolongation. 3. Asymmetric shape to the left orbital globe, slightly elongated in AP dimension when compared to the contralateral side. This is of uncertain significance. Edgardo Thakkar MD Objective Remarks GENERAL: This is a well-nourished, well-developed patient, in no apparent distress sitting in bed. SKIN: No rashes, bruise under left eye. Cool and dry. HEAD: Atraumatic. Normocephalic. EYES: Pupils equal round and reactive. Extraocular motions intact. No scleral icterus. No injection or drainage. Diminished vision worse on left eye, chronic. ENT: Nose without bleeding, purulent drainage or septal hematoma. Throat without erythema, tonsillar hypertrophy or exudate. Uvula midline. Airway patent. NECK: Trachea midline. No JVD or lymphadenopathy. Supple, nontender, no meningeal signs. CARDIOVASCULAR: Normal S1 and S2. Regular rate and rhythm without murmurs, gallops, or rubs. RESPIRATORY: Clear to auscultation bilaterally, no rales, or rhonchi. GASTROINTESTINAL: Abdomen soft, non-tender, slightly distended. No hepato- splenomegaly, or palpable masses. No guarding. MUSCULOSKELETAL: Extremities without clubbing, cyanosis, or edema. Mild LE edema noted. mild Right calf tenderness. +2DP pulses BL. NEUROLOGICAL: Awake and alert throughout majority of exam, fell asleep twice during exam but easily aroused. AAOx3. BG 104. Cranial nerves II through XII intact. Motor and sensory grossly within normal limits. 3/5 strength on Right LE at baseline, and 5/5 strength in LUE,RUL and RLL. Normal sensation. Normal speech, tangental. No focal neuro deficits. (Surya Sprague MD, R1) A/P Assessment and Plan 62 yo male with past medical history of diabetes and GERD presents with: (Surya Sprague MD, R1) Attending Attestation Patient seen and examined. Case reviewed and discussed. Agree with plan of care as discussed with me and documented in the resident note. (Chica Brown MD) Problem List: (1) CVA (cerebral vascular accident) ICD Codes: I63.9 - Cerebral infarction, unspecified Status: Acute Plan: MRI brain: Few small focal areas of restricted diffusion in the superficial cortex of the posterior right parietal lobe suggesting small infarctions without evidence of blood products. 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 u/s carotid: Left normal, Right 50-69% stenosis (2) Hypoglycemia ICD Codes: E16.2 - Hypoglycemia, unspecified Status: Resolved Plan: Patient stated he has BG of 27 this am and reports multiple episode of hypoglycemia this wk with BG in the 30s Patient brought in by EMS due to a witnessed fall and BG found to be in the 30s Patient with continued AMS in the ED. AAOx3 during admission interview. Echo 05/30/17: EF 40-45% On admission B 12hr Bedside glucose range overnight: 44-181 Current B patient with multiple episode of hypoglycemia, may need readjustment of insulin regimen. Consider endo consults for insulin adjustment. hold home insulin for now Monitor bed side blood sugar Q2 hrs hypoglycemia protocol IVF + dextrose 10% CT head: No acute findings in the brain. Left periorbital soft tissue swelling X-rays of hands BL: No evidence of recent bone injury PT consulted for evaluation adaptive physical educator CK WNL Alcohol level <3 Follow-up: UDS and UA Prolactin Blood cultures (3) Diabetes type 2, uncontrolled ICD Codes: E11.65 - Type 2 diabetes mellitus with hyperglycemia Status: Chronic Plan: Patient with home insulin regimen: Lantus 36 units am and 33 units HS humalog 5 units before breakfast see plan above (4) GERD (gastroesophageal reflux disease) ICD Codes: K21.9 - Gastro-esophageal reflux disease without esophagitis Status: Chronic Plan: stable c/w omeprazole (5) Chronic venous insufficiency ICD Codes: I87.2 - Venous insufficiency (chronic) (peripheral) Status: Chronic Plan: stable, no LE edema noted on exam c/w lasix 20mg QD (6) Nutrition, metabolism, and development symptoms ICD Codes: R63.8 - Other symptoms and signs concerning food and fluid intake Plan: Fluids: 125mls/hr Electrolytes: WNL, replete as needed Nutrition: diabetic diet DVT ppx: lovenox 40mg Q24h (Surya Sprague MD, R1) Problem Qualifiers (1) CVA (cerebral vascular accident): Surya Sprague MD, R1 July 30, 2017 13:41 Chica Brown MD August 01, 2017 18:25
[2017-07-30] MEDS ORDERED: SODIUM CHLORIDE 0.9% FLUSH 10 ML FLUSH IV FLUSH PRN (13:45)
[2017-07-30] MEDS ORDERED: DEXTROSE 50% IN WATER 50 ML VIAL(D50) IV PUSH PRN (13:45)
[2017-07-30] MEDS ORDERED: GLUCAGON 1 MG/ML VIAL OTHER PRN (13:45)
[2017-07-30] MEDS: ASPIRIN 325 MG TAB PO SCH (14:28)
--- NOTE | 2017-07-30 14:38 | RADRPT ---
EXAM DATE/TIME: 07/30/2017 13:50 [facility] COMPARISON: US CAROTID ARTERIES, July 29, 2017, 14:37. INDICATIONS : Right leg pain. MEDICAL HISTORY : Hypercholesterolemia. Sleep apnea. Gastroesophageal reflux disease. Diabetic neuropathy. Hiatal Herni a. Diabetes insulin dependant. SURGICAL HISTORY : Left thumb and shoulder surgery. Bilateral cataract surgery. Left retina repair. ENCOUNTER: Initial ACUITY: 1 day PAIN SCORE: 0/10 LOCATION: Right leg. TECHNIQUE: Venous ultrasound of the leg was performed from the inguinal ligament to the proximal calf. Real-garth e, color Doppler and spectral tracing, compression and augmentation techniques were used. FINDINGS: There is normal compressibility of the deep venous system from the inguinal region to the proximal ca lf. No echogenic clot is seen in the lumen of the common femoral, femoral, popliteal, and posterior tibial veins. There is a normal response of the venous system to proximal and distal augmentation an d respiration. CONCLUSION: 1. No DVT identified. 2. There are edematous changes within the subcutaneous soft tissues. Abrahan Henriquez MD on July 30, 2017 at 14:35 Board Certified Radiologist. This report was verified electronically.
[2017-07-30 15:15] LABS: CHOLESTEROL/ HDL RATIO 2.08 RATIO; HDL CHOLESTEROL 54.3 MG/DL (40.0-60.0)
[2017-07-30 15:51] LABS: HEMOGLOBIN A1C 6.3 % (4.3-6.0)
[2017-07-30] MEDS: INSULIN ASPART SUPPLEMENTAL SCALE SQ SCH ×4 (16:29→22:30)
[2017-07-30] MEDS: ENOXAPARIN SODIUM 40 MG/0.4 ML SYRINGE SQ SCH (16:29)
--- NOTE | 2017-07-30 17:14 | MB ---
cc: Joan Nava MD, Dalia MD DATE: 07/30/2017 REASON FOR CONSULTATION: Stroke. HISTORY OF PRESENT ILLNESS: The patient's history is taken from the chart, but apparently was brought in after he had a glucose fasting in the morning of 27. He had been having low readings. Apparently, he had an appointment with his primary care doctor, subsequently was sent here. He had some falls, most likely due to his hypoglycemia. I am told by nursing staff that he takes usually his sugar and, if it is low, he eats something or gets himself some glucose and then if it is over a certain number he starts to give himself some insulin. He may have very poor control of his glucose levels. He may need more education on how to use meditation. They did an MRI of the brain and he was found to have a very tiny little stroke in the right parietal region on diffusion. Hence, neurology consulted. The patient has history of diabetes, questionable CHF in the past, possibly reflux, cataract surgery, left hand due to wound repair surgery, left shoulder repair. MEDICINES AT HOME: 1. Concrete 10/325 p.r.n. 2. Omeprazole. 3. Humalog. 4. Lantus 5. Lasix. ALLERGIES: NONE REPORTED. FAMILY HISTORY: Diabetes in the brother and mother and the mother also has heart disease. SOCIAL HISTORY: Apparently lives alone in a van somehow in a friend's backyard, ambulates with a cane at baseline due to back pain, on disability due to mental and physical disability per chart. Smoker of 1 pack of cigars per week for about 10 years. No illicit drugs or alcohol reported. PHYSICAL EXAMINATION: GENERAL: He is somnolent, arousable. VITAL SIGNS: Temperature is 97.7, pulse 82, respiratory rate 18, blood pressure 137/72, satting at 99%. His pupils are reactive. His face is symmetrical. Tongue midline. Speech is normal. Motor gustafson, he seems to move everything equally. I do not see any drift or leg lag. [id number] - no past pointing. Toes downgoing. Sensory intact. Gait is withheld. LABORATORY DATA: Labs are reviewed. IMAGING STUDIES: Imaging reviewed. MRI does show a small focal area of restricted diffusion over the right parietal lobe. Also, carotid ultrasound showed a right side 50-69%. ASSESSMENT AND PLAN: Tiny infarct. Recommend giving him aspirin on a daily basis. Risk factor modification. He will need education on diabetes, LDL 49. He is already on a statin. For this carotid abnormality found on the right, certainly I would consider, if no contraindications, doing a CTA of the carotids just to verify if it is closer to 69% or not, since a tiny infarct was on the same side. If that is unremarkable, from my perspective, he does not need to have any other testing. He has had an echo in May with an ejection fraction of 45-50%. Continue risk factor and diabetic education, physical therapy and discharge planning. I will go ahead and order the CTA. MD SADAF Anderson/ , 04:46 PM , 05:12 PM
--- NOTE | 2017-07-30 19:32 | PD.CONS ---
History of Present Illness Service Endocrinology Consult Requested By Dr. Sprague Reason for Consult Uncontrolled DM with repetitive hypoglycemic events Primary Care Physician Unknown Diagnoses: History of Present Illness This is a 8 0year old White gentleman who presented with severe hypoglycemia complicated by a fall and laceration to his face. He was treated by EMS. On talking to him he has a longstanding history of diabetes diagnosed in 1991 presenting with asymptomatic hyperglycemia. In 2018 he was admitted for DKA and was started on insulin injections. Currently he is on about 90 units of Lantus a day in split dosages at home with a superimposed sliding scale. He reports that most recently in the last 1 month or so he has been eating less since he does not feel like eating. He does not report a concomitant weight loss since then. The patient has no working knowledge of carbohydrate counting. He has been seen by diabetes education during this hospital visit already. Otherwise he used to have a hypoglycemia threshold of 100 in the past which has most recently been noticed to be far lower although he does not know the exact number he reports that his symptoms have blunted allot. His diabetes is otherwise complicated by a history of bilateral cataracts s/p cataract surgery, retinal detachment and proliferative diabetic retinopathy. He denies a history of CAD although he does seems to have a history of CHF. He denies a history of CKD. He has severe PNP to where he would not feel his nails fall of. The patient is the youngest of 5 and has 3 borhters and one sister. He has a family hisotry of diabetes in his mother and one of his brothers. Review of Systems Constitutional: COMPLAINS OF: Fatigue, Change in appetite (as stated above he has not been feeling like eating) Respiratory: COMPLAINS OF: Cough, Wheezing, Shortness of breath Cardiovascular: COMPLAINS OF: Dyspnea on Exertion, PND, Lower Extremity Edema, Orthopnea Gastrointestinal: COMPLAINS OF: Anorexia Genitourinary: COMPLAINS OF: Testicular Swelling Musculoskeletal: COMPLAINS OF: Muscle aches, Back pain Neurologic: COMPLAINS OF: Paresthesias Except as stated in HPI: all other systems reviewed are Neg Past Family Social History Allergies: Coded Allergies: No Known Allergies (Unverified Allergy, Unknown, 05/29/17) Past Medical History DM type 2, diabetic PNP, diabetic retinopathy, Hx cataracts, GERD, reflux esophagitis, Hepatitis C Past Surgical History None Active Ordered Medications Active Medications Acetaminophen/ Hydrocodone Bitart ([place] 5-325 Mg) 1 tab Q4H PRN PO; Start 07/29/17 at 23:15 Acetaminophen/ Hydrocodone Bitart ([place] 10-325 Mg) 1 tab Q4H PRN PO Last administered on 07/30/17at 14:29; Admin Dose 1 TAB; Start 07/29/17 at 23:15 Aspirin (Aspirin) 325 mg DAILY PO Last administered on 07/30/17at 14:28; Admin Dose 325 MG; Start 07/30/17 at 13:45 Atorvastatin Calcium (Lipitor) 10 mg HS PO; Start 07/30/17 at 21:00 Chlorhexidine Gluconate (Chlorhexidine 2% Cloth) 3 pack DAILY@04 TOPICAL Last administered on 07/30/17at 04:00; Admin Dose 3 PACK; Start 07/30/17 at 04:00; Stop 08/03/17 at 04:01 Chlorhexidine Gluconate (Chlorhexidine 2% Cloth) 3 pack UNSCH PRN TOPICAL; Start 07/30/17 at 01:00; Stop 08/04/17 at 00:57 Dextrose (D50w (Vial) Inj) 50 ml UNSCH PRN IV PUSH; Start 07/30/17 at 13:45 Glucagon (Glucagon Inj) 1 mg UNSCH PRN OTHER; Start 07/30/17 at 13:45 Insulin Aspart (NovoLOG SUPPLEMENTAL SCALE) 1 ACHS SQ Last administered on at 16:29; Admin Dose 1; Start 07/30/17 at 17:00 Miscellaneous Information ([facility] Nursing Information) Patient in critical care unit? Ass... Q361D .XX; Start 07/30/17 at 01:00 Senna/Docusate Sodium (Radha-Colace) 1 tab BID PO Last administered on 07/30/17at 07:54; Admin Dose 1 TAB; Start 07/30/17 at 09:00 Sodium Chloride (NS Flush) 2 ml BID IV FLUSH; Start 07/30/17 at 21:00; Stop at 21:00; Status DC Sodium Chloride (NS Flush) 2 ml UNSCH PRN IV FLUSH; Start 07/30/17 at 13:45; Stop 07/30/17 at 13:53; Status DC Sodium Chloride 77 meq/Dextrose 1,019.25 ml @ 125 mls/ hr Q8H10M IV Last administered on 07/30/17at 14:20; Admin Dose 125 MLS/HR; Start 07/29/17 at 22:00 Family History mother and one brother had Hx of diabetes Social History Patient is single living alone, 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 Physical Exam Vital Signs Vital Signs Date Time Temp Pulse Resp B/P (MAP) Pulse Ox O2 Delivery O2 Flow Rate FiO2 07/30/17 18:00 83 07/30/17 16:00 79 07/30/17 16:00 98.7 79 16 126/74 (91) 100 07/30/17 14:59 98 07/30/17 14:00 82 07/30/17 12:00 97.7 81 18 137/72 (93) 99 07/30/17 12:00 81 07/30/17 10:00 76 07/30/17 08:00 87 07/30/17 08:00 97.1 87 20 114/79 (91) 96 07/30/17 06:00 83 07/30/17 04:00 87 26 109/59 (76) 97 07/30/17 04:00 87 07/30/17 02:00 87 07/30/17 00:00 98.2 90 22 106/60 (75) 100 07/30/17 00:00 90 07/29/17 21:47 90 20 133/78 (96) 100 Physical Exam GENERAL: This is a obese in no apparent distress. SKIN: ecchymoses and bruises on his left face s/p his fall. HEAD: S/p fall and trauma to his face. Please see chart. . EYES: Pupils equal round. Extraocular motions intact. No scleral icterus. No injection or drainage. ENT: Nose without bleeding, purulent drainage. Airway patent. NECK: Trachea midline. No JVD or lymphadenopathy. Supple, nontender, no meningeal signs.Thyroid is not palpable and carotids are palpable with no bruits audible. CARDIOVASCULAR: Regular rate and rhythm without murmurs, gallops, or rubs. RESPIRATORY: patient has sporadc wheezing over upper lung siddiqui anteriorly. Breath sounds equal bilaterally. No rales, or rhonchi. GASTROINTESTINAL: Abdomen soft, non-tender, nondistended. No hepato-splenomegaly , or palpable masses. No guarding. MUSCULOSKELETAL: Extremities without clubbing, cyanosis, or edema. Good pulses in both feet in the dorsalis pedis arteries . NEUROLOGICAL: Awake and alert. Cranial nerves II through XII grossly intact. Motor and sensory grossly within normal limits. No pronator drift Normal speech. Laboratory Laboratory Tests Test 07/29/17 22:05 07/29/17 22:35 07/30/17 03:25 07/30/17 08:45 Nasal Screen MRSA (PCR) MRSA NOT DETECTED Lactic Acid Level 1.5 White Blood Count 7.9 Red Blood Count 4.62 Hemoglobin 11.8 Hematocrit 36.0 Mean Corpuscular Volume 78.0 Mean Corpuscular Hemoglobin 25.5 Mean Corpuscular Hemoglobin Concent 32.7 Red Cell Distribution Width 16.2 Platelet Count 244 Mean Platelet Volume 8.9 Blood Urea Nitrogen 21 Creatinine 1.00 Random Glucose 84 Total Protein 6.6 Albumin 2.9 Calcium Level 8.3 Alkaline Phosphatase 160 Aspartate Amino Transf (AST/SGOT) 45 Alanine Aminotransferase (ALT/SGPT) 57 Total Bilirubin 0.5 Sodium Level 136 Potassium Level 5.1 Chloride Level 103 Carbon Dioxide Level 23.7 Anion Gap 9 Estimat Glomerular Filtration Rate 76 Hemoglobin A1c 6.3 Triglycerides Level 47 Cholesterol Level 113 LDL Cholesterol 49 HDL Cholesterol 54.3 Cholesterol/HDL Ratio 2.08 Date/Time Source Procedure Growth Status 07/29/17 23:30 Blood Peripheral Aerobic Blood Culture Pending Received 07/29/17 23:30 Blood Peripheral Anaerobic Blood Culture Pending Received Result Diagram: 07/30/17 0325 07/30/17 0325 Assessment and Plan Problem List: (1) Diabetic peripheral neuropathy ICD Codes: E11.42 - Type 2 diabetes mellitus with diabetic polyneuropathy Status: Acute (2) CHF (congestive heart failure) ICD Codes: I50.9 - Heart failure, unspecified (3) Hypoglycemia ICD Codes: E16.2 - Hypoglycemia, unspecified Status: Acute (4) Diabetes type 2, uncontrolled ICD Codes: E11.65 - Type 2 diabetes mellitus with hyperglycemia Status: Chronic Assessment and Plan Uncontrolled Diabetes History of severe hypoglycemia History of decreased hypoglycemic threshold Anorexia The patient has a HBa1c of 6.2% and a history suggestive of multiple hypoglycemic episodes as an out patient. At this point has not required basal insulin since admission. Will await one more day to see how his numbers behave before addressing his need or not of exogenous basal insulin. C-peptide has also been ordered. If this was to come back low I will recommend to repeat the C -peptide in a week or so since a low C-peptide will be consistent albeit not suggestive of over-insulinization and will not adequately reflect the endogenous insulin production or reserve under these circumstances. I will take the liberty to add a morning cortisol to his AM draw for completion sake. Currently he is on a 60 gram consistent carb diet with 20 grams at bedtime. Further assessment and recommendation will depend on his labs and furhter glucose behavior. He also has Hepatitis C which may affect his gluconeogenesis in case of hepatic functional impairment and hence make him more prone to and less resilient to hypoglycemics. Thank you for the opportunity to participate in the medical management of this interstting patient. Will follow. Orders written. Vinny Mejia MD July 30, 2017 19:32
[2017-07-30] MEDS ORDERED: IOHEXOL 350 MG/ML 10 ML VIAL (for RAD DIAG) IVCONTRAST ONE (20:37)
--- NOTE | 2017-07-30 20:52 | RADRPT ---
EXAM DATE/TIME: 07/30/2017 20:05 [facility] COMPARISON: No previous studies available for comparison. INDICATIONS : Syncopal episode. Stenosis seen on ultrasound. IV CONTRAST: 75 cc Omnipaque 350 (iohexol) IV Injection Site: Lt AC Lot: [id number] Exp Date: May 2019 Lot: Exp Date : RADIATION DOSE: 10.94 CTDIvol (mGy) MEDICAL HISTORY : Cardiovascular disease. Diabetes. SURGICAL HISTORY : None. ENCOUNTER: Initial ACUITY: 2 days PAIN SCALE: 0/10 LOCATION: Bilateral neck Elevated flow velocities and ICA/CCA ratios have been found to correlate with increased degrees of vessel stenosis, calculated as percentage of diameter relative to a normal segment of distal ICA/CCA. TECHNIQUE: Volumetric scanning was performed using a multirow detector CT scanner. The data was post processed with a variety of visualization algorithms including full-volume maximum intensity projection, multip lanar sliding thin-slab reformation, curved-planar reformation, and surface-rendering techniques. Us ing automated exposure control and adjustment of the mA and/or kV according to patient size, radiatio n dose was kept as low as reasonably achievable to obtain optimal diagnostic quality images. DICOM f ormat image data is available electronically for review and comparison. FINDINGS: AORTIC ARCH: There is a three-vessel origin of the great vessels from the aorta. No evidence of ostial narrowing. RIGHT CAROTID: The common carotid artery is intact. Prominent plaque right carotid origin consistent with 70% stenos is.. LEFT CAROTID: The common carotid artery is intact. Mild plaque within the proximal left internal carotid artery wit hout significant stenosis. VERTEBRALS: Right dominant vertebral artery. Mild narrowing along the proximal right vertebral artery. CONCLUSION: 1. 70% stenosis right proximal internal carotid artery. 2. No significant stenosis left internal carotid artery. 3. Bilateral pleural effusions appear moderate on the right and small on the left, not completely deepika luated. Kolton Conrad MD on July 30, 2017 at 20:40 Board Certified Radiologist. This report was verified electronically.
[2017-07-30] MEDS ORDERED: ATORVASTATIN 10 MG TAB PO SCH (21:00)
[2017-07-30] MEDS ORDERED: SODIUM CHLORIDE 0.9% FLUSH 10 ML FLUSH IV FLUSH SCH (21:00)
[2017-07-31] VITALS (8 sets, daily range): BP systolic 129–145; BP diastolic 65–79; PULSE 82–88; RESP 18–20; TEMP 97.3–97.9; O2SAT 90–100
[2017-07-31] MEDS: SODIUM CHLORIDE 23.4% INJ 77 MEQ in DEXTROSE 10% INJ 1,000 ML IV SCH ×2 (00:25→06:40)
[2017-07-31] MEDS: INSULIN ASPART SUPPLEMENTAL SCALE SQ SCH ×6 (00:30→21:44)
[2017-07-31] MEDS: ACETAMINOPHEN/HYDROcodone 325 MG/10 MG TAB PO PRN ×4 (01:12→21:45)
[2017-07-31] MEDS: CHLORHEXIDINE GLUCONATE 2 % 1 PACK (2 CLOTHS)(taper/protocol) TOPICAL SCH (04:00)
[2017-07-31 07:09] LABS: AUTOMATED NEUTROPHIL # 3.7 TH/MM3 (1.8-7.7); BASOPHIL % 0.6 % (0.0-2.0); EOSINOPHIL # 0.2 TH/MM3 (0-0.4); EOSINOPHIL % 3.3 % (0.0-4.0); HEMOGLOBIN 11.6 GM/DL (13.0-17.0); MEAN CELL VOLUME 78.2 FL (80.0-100.0); MEAN CORPUSCULAR HEMOGLOBIN 25.3 PG (27.0-34.0); MEAN CORPUSCULAR HGB CONC 32.3 % (32.0-36.0); MONO % 15.1 % (0.0-8.0); MONOCYTE # 0.9 TH/MM3 (0-0.9); PLATELET COUNT 227 TH/MM3 (150-450); RED BLOOD COUNT 4.61 MIL/MM3 (4.50-5.90); RED CELL DISTRIBUTION WIDTH 16.8 % (11.6-17.2); WHITE BLOOD COUNT 5.8 TH/MM3 (4.0-11.0)
[2017-07-31 07:41] LABS: BICARBONATE 24.7 MEQ/L (21.0-32.0); CALCIUM 8.3 MG/DL (8.5-10.1); CREATININE 1.13 MG/DL (0.60-1.30)
[2017-07-31 07:43] LABS: CHOLESTEROL/ HDL RATIO 2.3 RATIO; HDL CHOLESTEROL 47.8 MG/DL (40.0-60.0)
[2017-07-31] MEDS: ASPIRIN 325 MG TAB PO SCH (07:50)
[2017-07-31] MEDS: FUROSEMIDE 20 MG TAB PO SCH (07:50)
[2017-07-31] MEDS: SODIUM CHLORIDE 0.9% FLUSH 10 ML FLUSH IV FLUSH SCH ×2 (07:50→20:57)
[2017-07-31] MEDS: PANTOPRAZOLE SOD 40 MG DELAYED RELEASE TAB PO SCH (07:50)
[2017-07-31] MEDS: DOCUSATE SODIUM 50 MG/SENNA 8.6 MG TAB PO SCH ×2 (07:50→20:58)
[2017-07-31] MEDS ORDERED: DEXT 5%-NACL 0.45% 1000 ML INJ 1,000 ML IV SCH (11:00)
--- NOTE | 2017-07-31 11:03 | HHI.FPPN ---
Subjective Remarks No acute events overnight. Has been having increasing scrotal edema, orthopnea, NUNEZ (the last two have been chronic). Otherwise feels well. No CP/SOB at rest. (Adrien Bailey MD R2) Objective Vitals Vital Signs Date Time Temp Pulse Resp B/P (MAP) Pulse Ox O2 Delivery O2 Flow Rate FiO2 07/31/17 08:30 97.4 88 18 139/65 (89) 90 07/31/17 04:00 97.3 82 20 133/76 (95) 97 07/31/17 00:00 97.9 84 20 145/66 (92) 97 07/30/17 20:45 97.3 81 17 116/67 (83) 97 07/30/17 18:00 83 07/30/17 16:00 79 07/30/17 16:00 98.7 79 16 126/74 (91) 100 07/30/17 14:59 98 07/30/17 14:00 82 07/30/17 12:00 97.7 81 18 137/72 (93) 99 07/30/17 12:00 81 I/O 07/30/17 07/30/17 07/30/17 07/31/17 07/31/17 07/31/17 07:00 15:00 23:00 07:00 15:00 23:00 Intake Total 1426 ml 1019.25 ml 1179 ml 1576 ml Output Total 200 ml 450 ml 500 ml 750 ml Balance 1226 ml 569.25 ml 679 ml 826 ml Intake Oral 960 ml 220 ml IV Total 1426 ml 1019.25 ml 219 ml 1356 ml Output Urine Total 200 ml 450 ml 500 ml 750 ml # Bowel Movements 0 0 (Adrien Bailey MD R2) Result Diagram: 07/31/17 0618 07/31/17 0618 Imaging Last Impressions Lower Extremity Ultrasound 07/30/17 1338 Signed Impressions: Service Date/Time: Sunday, July 30, 2017 13:50 - CONCLUSION: 1. No DVT identified. 2. There are edematous changes within the subcutaneous soft tissues. Abrahan Henriquez MD Neck CTA 07/30/17 0000 Signed Impressions: Service Date/Time: Sunday, July 30, 2017 20:05 - CONCLUSION: 1. 70%% stenosis right proximal internal carotid artery. 2. No significant stenosis left internal carotid artery. 3. Bilateral pleural effusions appear moderate on the right and small on the left, not completely evaluated. Kolton Conrad MD Head CT 07/29/17 Signed Impressions: Service Date/Time: Saturday, July 29, 2017 09:47 - CONCLUSION: 1. No acute findings in the brain. 2. Left periorbital soft tissue swelling. Edgardo Thakkar MD Hand X-Ray 07/29/17 Signed Impressions: Service Date/Time: Saturday, July 29, 2017 10:45 - CONCLUSION: No evidence of recent bony injury. Edgardo Thakkar MD Carotid Artery Ultrasound 07/29/17 Signed Impressions: Service Date/Time: Saturday, July 29, 2017 14:37 - CONCLUSION: 1. Abnormal hemodynamic profile on the right side suggesting 50-69 %% stenosis. 2. Normal hemodynamic profile the left side. Edgardo Thakkar MD Brain MRI 07/29/17 Signed Impressions: Service Date/Time: Saturday, July 29, 2017 16:31 - CONCLUSION: 1. Few small focal areas of restricted diffusion in the superficial cortex of the posterior right parietal lobe suggesting small infarctions without evidence of blood products. 2. Left lateral orbital soft tissue thickening without T2 prolongation. 3. Asymmetric shape to the left orbital globe, slightly elongated in AP dimension when compared to the contralateral side. This is of uncertain significance. Edgardo Thakkar MD Objective Remarks GENERAL: This is a well-nourished, well-developed patient, in no apparent distress sitting in bed. SKIN: No rashes, bruise under left eye. Cool and dry. CARDIOVASCULAR: Normal S1 and S2. Regular rate and rhythm without murmurs, gallops, or rubs. RESPIRATORY: Clear to auscultation bilaterally, no rales, or rhonchi. GASTROINTESTINAL: Abdomen soft, non-tender, slightly distended. GENITOURINARY: Significant scrotal edema, no erythema/cyanosis. MUSCULOSKELETAL: Extremities without clubbing, cyanosis, or edema. Mild LE edema noted. +2DP pulses BL. NEUROLOGICAL: Awake and alert. Cranial nerves II through XII intact. Grossly non-focal. Normal speech. Medications and IVs Current Medications Medications (Trade) Dose Ordered Sig/Mychal Route Start Time Stop Time Status Last Admin (NS Flush) 2 ml UNSCH PRN IV FLUSH 07/29/17 13:15 (NS Flush) 2 ml BID IV FLUSH 07/29/17 13:15 07/29/17 21:00 (Lovenox Inj) 40 mg Q24H SQ 07/29/17 18:00 07/30/17 16:29 (Narcan Inj) 0.4 mg UNSCH PRN IV PUSH 07/29/17 13:15 (Radha-Colace) 1 tab BID PO 07/30/17 09:00 07/31/17 07:50 (Milk Of Magnesia Liq) 30 ml Q12H PRN PO 07/29/17 13:15 07/31/17 07:51 (Senokot) 17.2 mg Q12H PRN PO 07/29/17 13:15 (Dulcolax Supp) 10 mg DAILY PRN RECTAL 07/29/17 13:15 (Lactulose Liq) 30 ml DAILY PRN PO 07/29/17 13:15 (Motrin) 400 mg Q6H PRN PO 07/29/17 13:45 (Protonix) 40 mg DAILY PO 07/29/17 16:00 07/31/17 07:50 (Lasix) 20 mg DAILY PO 07/29/17 17:00 07/31/17 07:50 ([place] 5-325 Mg) 1 tab Q4H PRN PO 07/29/17 23:15 ([place] 10-325 Mg) 1 tab Q4H PRN PO 07/29/17 23:15 07/31/17 05:36 ([facility] Nursing Information) Patient in critical care unit? Ass... Q361D .XX 07/30/17 01:00 (Chlorhexidine 2% Cloth) 3 pack DAILY@04 TOPICAL 07/30/17 04:00 08/03/17 04:01 07/30/17 04:00 (Chlorhexidine 2% Cloth) 3 pack UNSCH PRN TOPICAL 07/30/17 01:00 08/04/17 00:57 (Aspirin) 325 mg DAILY PO 07/30/17 13:45 07/31/17 07:50 (Lipitor) 10 mg HS PO 07/30/17 21:00 07/30/17 20:48 (NovoLOG SUPPLEMENTAL SCALE) 1 ACHS SQ 07/30/17 17:00 07/31/17 07:53 (D50w (Vial) Inj) 50 ml UNSCH PRN IV PUSH 07/30/17 13:45 (Glucagon Inj) 1 mg UNSCH PRN OTHER 07/30/17 13:45 (Adrien Bailey MD R2) A/P Assessment and Plan 62 yo male with past medical history of diabetes and GERD presents with: (Adrien Bailey MD R2) Attending Attestation Patient seen and examined. Case reviewed and discussed. Agree with plan of care as discussed with me and documented in the resident note. (Chica Brown MD) Problem List: (1) CVA (cerebral vascular accident) ICD Codes: I63.9 - Cerebral infarction, unspecified Status: Acute Plan: MRI brain: Few small focal areas of restricted diffusion in the superficial cortex of the posterior right parietal lobe suggesting small infarctions without evidence of blood products. Radiological report discussed with radiologist wine consultant MRI brain does suggest acute ischemic stroke On exam: AAOx3, no focal neurological deficits CTA neck with 70% RCA stenosis U/S carotid consistent with CTA findings Stroke protocol initiated Neurology consulted, appreciate recommendations -To evaluate CTA findings for possible CEA Patient passed bedside swallow, okay to resume p.o. (2) Hypoglycemia ICD Codes: E16.2 - Hypoglycemia, unspecified Status: Resolved Plan: Now resolved with IV dextrose, food Patient brought in by EMS due to a witnessed fall and BG found to be in the 30s Patient with continued AMS in the ED. AAOx3 during admission interview. Echo 05/30/17: EF 40-45% Bedside glucose range overnight: 44-181 CT head: No acute findings in the brain. 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) (4) Scrotal edema ICD Codes: N50.89 - Other specified disorders of the male genital organs Status: Acute Plan: Acute on chronic (this has been issue for patient in past) Exam suggestive of lymphedema Most likely etiology - body habitus, mild CHF, continued IV fluids -Give additional 20 mg lasix IV today -Follow clinically once IVF discontinued -Needs urology follow up outpatient (recommended prior admission) (5) Diabetes type 2, uncontrolled ICD Codes: E11.65 - Type 2 diabetes mellitus with hyperglycemia Status: Chronic Plan: Patient with home insulin regimen: Lantus 36 units am and 33 units HS humalog 5 units before breakfast see plan above (6) GERD (gastroesophageal reflux disease) ICD Codes: K21.9 - Gastro-esophageal reflux disease without esophagitis Status: Chronic Plan: stable c/w omeprazole (7) Chronic venous insufficiency ICD Codes: I87.2 - Venous insufficiency (chronic) (peripheral) Status: Chronic Plan: stable, no LE edema noted on exam except at thighs and scrotum as noted c/w lasix 20mg QD (8) Nutrition, metabolism, and development symptoms ICD Codes: R63.8 - Other symptoms and signs concerning food and fluid intake Plan: Fluids: 100 cc/hr D5-1/2NS Electrolytes: monitor, replete as needed Nutrition: diabetic diet DVT ppx: lovenox 40mg Q24h (Adrien Bailey MD R2) Problem Qualifiers (1) CVA (cerebral vascular accident): (2) Closed head injury: Qualified Codes: S09.90XA - Unspecified injury of head, initial encounter Adrien Bailey MD R2 July 31, 2017 11:02 Chica Brown MD August 01, 2017 18:09
[2017-07-31] MEDS ORDERED: FUROSEMIDE 20 MG/2 ML VIAL IV PUSH ONE ×2 (11:15→17:00)
[2017-07-31] MEDS: CLOTRIMAZOLE 1% CREAM 15 GM TOPICAL SCH ×2 (14:00→21:00)
--- NOTE | 2017-07-31 14:39 | RADRPT ---
EXAM DATE/TIME: 07/31/2017 14:11 [place] COMPARISON: CT ABDOMEN & PELVIS W/O CONTRAST, May 29, 2017, 20:31. INDICATIONS : Short of breath and congestion. MEDICAL HISTORY : Cardiovascular disease. Diabetes. SURGICAL HISTORY : None. ENCOUNTER: Subsequent ACUITY: 3 days PAIN SCORE: 0/10 LOCATION: Bilateral chest FINDINGS: There is a small right pleural effusion with associated airspace disease in the right lower lobe. Car diac silhouette is mildly enlarged. Bony thorax is intact. CONCLUSION: 1. Small right pleural effusion with associated right lower lobe airspace disease. This is largely un changed from recent CT examination. Negro Larson MD on July 31, 2017 at 14:36 Board Certified Radiologist. This report was verified electronically.
[2017-07-31] MEDS: ENOXAPARIN SODIUM 40 MG/0.4 ML SYRINGE SQ SCH (16:30)
[2017-07-31] MEDS: ATORVASTATIN 40 MG TAB PO SCH (20:58)
[2017-08-01] VITALS: BP 137/75; PULSE 93; RESP 20; TEMP 97.6; O2SAT 98
[2017-08-01] MEDS: ACETAMINOPHEN/HYDROcodone 325 MG/10 MG TAB PO PRN ×3 (01:49→21:35)
[2017-08-01] MEDS: CHLORHEXIDINE GLUCONATE 2 % 1 PACK (2 CLOTHS)(taper/protocol) TOPICAL SCH (04:00)
[2017-08-01 07:15] LABS: HEMATOCRIT 36.7 % (39.0-51.0)
[2017-08-01 07:34] LABS: BICARBONATE 29.2 MEQ/L (21.0-32.0); CALCIUM 8.7 MG/DL (8.5-10.1); CREATININE 0.96 MG/DL (0.60-1.30)
[2017-08-01 08:00] VITALS: BP 126/69; PULSE 92; RESP 16; TEMP 98.1; O2SAT 97
[2017-08-01 08:38] VITALS: O2SAT 98
[2017-08-01] MEDS: PANTOPRAZOLE SOD 40 MG DELAYED RELEASE TAB PO SCH (09:00)
[2017-08-01] MEDS: FUROSEMIDE 40 MG TAB PO SCH (09:00)
[2017-08-01] MEDS: INSULIN ASPART SUPPLEMENTAL SCALE SQ SCH ×4 (09:01→21:32)
[2017-08-01] MEDS: ASPIRIN 325 MG TAB PO SCH (09:01)
[2017-08-01] MEDS: DOCUSATE SODIUM 50 MG/SENNA 8.6 MG TAB PO SCH ×2 (09:01→21:31)
[2017-08-01] MEDS: SODIUM CHLORIDE 0.9% FLUSH 10 ML FLUSH IV FLUSH SCH ×2 (09:01→21:38)
[2017-08-01] MEDS: CLOTRIMAZOLE 1% CREAM 15 GM TOPICAL SCH ×2 (09:02→21:36)
[2017-08-01 12:00] VITALS: BP 132/73; PULSE 88; RESP 16; TEMP 98; O2SAT 100
--- NOTE | 2017-08-01 13:33 | PD.CONS ---
[facility] Service Rehabilitation Medicine Consult Requested By Joan Nava MD Reason for Consult Comprehensive rehabilitation evaluation. Primary Care Physician Unknown History of Present Illness Ariel Mejia is a 62-year-old [id number] male admitted [facility] with history of fall. Patient was noted to have hypoglycemia with blood glucose in the 30s. Brain MRI 07/29/17 showed few small focal areas of restricted diffusion in the superficial cortex of the posterior right parietal lobe suggesting small infarctions without evidence of blood products. Review of Systems Constitutional: DENIES: Fatigue Eyes: DENIES: Diplopia Ears, nose, mouth, throat: DENIES: Hearing loss, Throat pain Respiratory: COMPLAINS OF: Shortness of breath (When laying flat and with exertion) Cardiovascular: DENIES: Chest pain Gastrointestinal: DENIES: Abdominal pain Genitourinary: DENIES: Urinary incontinence Musculoskeletal: COMPLAINS OF: Back pain Integumentary: DENIES: Rash Hematologic/lymphatic: COMPLAINS OF: Bruising (Left face and ear) Neurologic: COMPLAINS OF: Paresthesias (Distal lower extremities consistent with history of diabetic neuropathy), DENIES: Headache, Localized weakness, Speech Problems Psychiatric: DENIES: Confusion Past Family Social History Allergies: Coded Allergies: No Known Allergies (Unverified Allergy, Unknown, 05/29/17) Past Medical History Diabetes mellitus Scrotal edema GERD Chronic venous insufficiency Chronic back pain Past Surgical History Cataract surgery Surgery of left hand Left shoulder repair Current Medications Current Medications Medications (Trade) Dose Ordered Sig/Mychal Route Start Time Stop Time Status Last Admin (NS Flush) 2 ml UNSCH PRN IV FLUSH 07/29/17 13:15 (NS Flush) 2 ml BID IV FLUSH 07/29/17 13:15 08/01/17 09:01 (Lovenox Inj) 40 mg Q24H SQ 07/29/17 18:00 07/31/17 16:30 (Narcan Inj) 0.4 mg UNSCH PRN IV PUSH 07/29/17 13:15 (Radha-Colace) 1 tab BID PO 07/30/17 09:00 08/01/17 09:01 (Milk Of Magnesia Liq) 30 ml Q12H PRN PO 07/29/17 13:15 07/31/17 07:51 (Senokot) 17.2 mg Q12H PRN PO 07/29/17 13:15 (Dulcolax Supp) 10 mg DAILY PRN RECTAL 07/29/17 13:15 (Lactulose Liq) 30 ml DAILY PRN PO 07/29/17 13:15 (Motrin) 400 mg Q6H PRN PO 07/29/17 13:45 (Protonix) 40 mg DAILY PO 07/29/17 16:00 08/01/17 09:00 ([place] 5-325 Mg) 1 tab Q4H PRN PO 07/29/17 23:15 ([place] 10-325 Mg) 1 tab Q4H PRN PO 07/29/17 23:15 08/01/17 06:02 ([facility] [place] Nursing Information) Patient in critical care unit? Ass... Q361D .XX 07/30/17 01:00 (Chlorhexidine 2% Cloth) 3 pack DAILY@04 TOPICAL 07/30/17 04:00 08/03/17 04:01 07/30/17 04:00 (Chlorhexidine 2% Cloth) 3 pack UNSCH PRN TOPICAL 07/30/17 01:00 08/04/17 00:57 (Aspirin) 325 mg DAILY PO 07/30/17 13:45 08/01/17 09:01 (NovoLOG SUPPLEMENTAL SCALE) 1 ACHS SQ 07/30/17 17:00 08/01/17 09:01 (D50w (Vial) Inj) 50 ml UNSCH PRN IV PUSH 07/30/17 13:45 (Glucagon Inj) 1 mg UNSCH PRN OTHER 07/30/17 13:45 (Lasix) 40 mg DAILY PO 08/01/17 09:00 08/01/17 09:00 (Lipitor) 40 mg HS PO 07/31/17 21:00 07/31/17 20:58 (Lotrimin 1% Cream) 1 applic Q12HR TOPICAL 07/31/17 14:00 08/01/17 09:02 Family History Mother: Heart disease Social History Prior to admission patient ambulated with a single-point cane. He reports that he was able to perform all ADLs Exam I&O / VS Vital Signs Date Time Temp Pulse Resp B/P (MAP) Pulse Ox O2 Delivery O2 Flow Rate FiO2 08/01/17 08:38 98 08/01/17 08:00 98.1 92 16 126/69 (88) 97 08/01/17 00:00 97.6 93 20 137/75 (95) 98 07/31/17 20:33 98 21 07/31/17 20:00 97.7 87 20 129/69 (89) 97 07/31/17 18:03 16 07/31/17 16:00 97.4 86 18 140/79 (99) 100 General: No acute distress Respiratory: Lungs CTA, Non-labored respirations, BS equal Gastrointestinal: Positive Bowel Sounds, Non-Distended, Non-Tender Cardiovascular: Normal rate, Regular Rhythm Skin: No rash, Other (Abrasion left face in the pentecostal area with no active bleeding) Musculoskeletal: Swelling (Scrotal edema; bilateral lower extremity edema) Psychiatric: Cooperative, Appropriate mood & affect Orientation: oriented to Self, oriented to Place, oriented to Time, oriented to Situation Neurologic: Cranial Nerves (Intact 2 through 12), Facial Symmetry (Symmetric), Speech (No dysarthria or word finding difficulties) Motor: Right Upper Extremity (5/5), Left Upper Extremity (5/5), Right Lower Extremity (5/5), Left Lower Extremity (5/5) Sensory Intact to light touch in both upper and lower extremities but decreased distal to the ankles bilaterally DTRs: Normal Babinski: Negative Clonus: Negative Assessment and Plan Diagnosis: (1) CVA (cerebral vascular accident) ICD Codes: I63.9 - Cerebral infarction, unspecified Status: Acute Qualifiers: Precerebral and cerebral artery: middle cerebral artery Laterality of affected vessel: right Assessment 1. Right parietal stroke 2. Diabetes mellitus with peripheral neuropathy Plan 1. Physical therapy is mobilizing and patient is standby assist for transfers and gait with no device independent with fair plus balance. Continue to mobilize 2. Would continue home health physical therapy at discharge for gait training and fall prevention 3. Continue supervision and fall precautions while hospitalized 4. Will follow while hospitalized and at discharge Thank you for this consult Bekah Paz MD August 01, 2017 13:33
--- NOTE | 2017-08-01 15:40 | ECHRPT ---
Indication: EF assessment of CHF CONCLUSIONS Normal left ventricular size. Mild concentric left ventricular hypertrophy. The left ventricular systolic function is severely reduced with an estimated ejection fraction in th e range of 25-30%. Global hypokinesis The right ventricle is moderately dilated. The right ventricular systoilc function is severely decreased. The left atrial size is moderately dilated. The right atrial size is iiohsblb-ts-rtihzxsj dilated. Cfbo-uq-lkkmizfw mitral valve regurgitation. There is mild to moderate tricuspid valve regurgitation. The estimated pulmonary arterial pressure is 48 mmHg. BP: 135 / 65 HR: 88 Rhythm: Sinus MEASUREMENTS (Male / Female) Normal Values Technical Quality:Fair 2D ECHO LV Diastolic Diameter PLAX 5.3 cm 4.2 - 5.9 / 3.9 - 5.3 cm LV Systolic Diameter PLAX 4.7 cm IVS Diastolic Thickness 1.2 cm 0.6 - 1.0 / 0.6 - 0.9 cm LVPW Diastolic Thickness 1.2 cm 0.6 - 1.0 / 0.6 - 0.9 cm LV Relative Wall Thickness 0.4 RV Internal Dim ED PLAX 3.6 cm LVOT Diameter 1.9 cm Aortic Root Diameter 2.9 cm LA Systolic Diameter LX 4.1 cm 3.0 - 4.0 / 2.7 - 3.8 cm M-MODE AV Cusp Separation MM 1.9 cm DOPPLER Mitral E Point Velocity 74.0 cm/s Mitral A Point Velocity 54.8 cm/s Mitral E to A Ratio 1.4 LV E' Lateral Velocity 5.9 cm/s Mitral E to LV E' Lateral Ratio 12.6 LV E' Septal Velocity 4.2 cm/s Mitral E to LV E' Septal Ratio 17.7 TR Peak Velocity 307.0 cm/s TR Peak Gradient 37.7 mmHg Right Atrial Pressure 10.0 mmHg Pulmonary Artery Systolic Pressu 47.7 mmHg Right Ventricular Systolic Press 47.7 mmHg FINDINGS LEFT VENTRICLE Normal left ventricular size. Mild concentric left ventricular hypertrophy. The left ventricular systolic function is severely reduced with an estimated ejection fraction in th e range of 25-30%. Global hypokinesis RIGHT VENTRICLE The right ventricle is moderately dilated. The right ventricular systoilc function is severely decreased. LEFT ATRIUM The left atrial size is moderately dilated. RIGHT ATRIUM The right atrial size is xhwzhsdc-lh-jvhqhxqj dilated. ATRIAL SEPTUM The interatrial septum not well visualized. AORTA The aortic root and proximal ascending aorta are normal in size on limited imaging. MITRAL VALVE Ywej-jj-sdqskpob mitral valve regurgitation. AORTIC VALVE Trileaflet aortic valve. No aortic valve stenosis or regurgitation. TRICUSPID VALVE There is mild to moderate tricuspid valve regurgitation. The estimated pulmonary arterial pressure is 48 mmHg. PULMONARY VALVE No pulmonary valve regurgitation or stenosis. PERICARDIUM No pericardial effusion. Dada Dickerson MD (Electronically Signed) Final Date:01 Aug 2017 15:40
--- NOTE | 2017-08-01 16:22 | HHI.FPPN ---
Subjective Remarks Delayed entry She seen and examined at bedside this morning. No acute events overnight. Patient stated that bilateral thigh swelling has slightly improved since being on Lasix medication. No other issues or concerns. (Surya Sprague MD, R1) Objective Vitals Vital Signs Date Time Temp Pulse Resp B/P (MAP) Pulse Ox O2 Delivery O2 Flow Rate FiO2 08/01/17 12:00 98.0 88 16 132/73 (92) 100 08/01/17 08:38 98 08/01/17 08:00 98.1 92 16 126/69 (88) 97 08/01/17 00:00 97.6 93 20 137/75 (95) 98 07/31/17 20:33 98 21 07/31/17 20:00 97.7 87 20 129/69 (89) 97 07/31/17 18:03 16 I/O 07/31/17 07/31/17 07/31/17 08/01/17 08/01/17 08/01/17 07:00 15:00 23:00 07:00 15:00 23:00 Intake Total 1576 ml 960 ml 1000 ml Output Total 750 ml Balance 826 ml 960 ml 1000 ml Intake Oral 220 ml 960 ml 1000 ml IV Total 1356 ml Output Urine Total 750 ml # Voids 5 4 # Bowel Movements 0 0 1 (Surya Sprague MD, R1) Result Diagram: 08/01/17 0546 08/01/17 0546 Imaging Last Impressions Chest X-Ray 07/31/17 0000 Signed Impressions: Service Date/Time: July 14:11 - CONCLUSION: 1. Small right pleural effusion with associated right lower lobe airspace disease. This is largely unchanged from recent CT examination. Negro Larson MD Lower Extremity Ultrasound 07/30/17 1338 Signed Impressions: Service Date/Time: Sunday, July 30, 2017 13:50 - CONCLUSION: 1. No DVT identified. 2. There are edematous changes within the subcutaneous soft tissues. Abrahan Henriquez MD Neck CTA 07/30/17 0000 Signed Impressions: Service Date/Time: Sunday, July 30, 2017 20:05 - CONCLUSION: 1. 70%% stenosis right proximal internal carotid artery. 2. No significant stenosis left internal carotid artery. 3. Bilateral pleural effusions appear moderate on the right and small on the left, not completely evaluated. Kolton Conrad MD Head CT 07/29/17 Signed Impressions: Service Date/Time: Saturday, July 29, 2017 09:47 - CONCLUSION: 1. No acute findings in the brain. 2. Left periorbital soft tissue swelling. Edgardo Thakkar MD Hand X-Ray 07/29/17 Signed Impressions: Service Date/Time: Saturday, July 29, 2017 10:45 - CONCLUSION: No evidence of recent bony injury. Edgardo Thakkar MD Carotid Artery Ultrasound 07/29/17 Signed Impressions: Service Date/Time: Saturday, July 29, 2017 14:37 - CONCLUSION: 1. Abnormal hemodynamic profile on the right side suggesting 50-69 %% stenosis. 2. Normal hemodynamic profile the left side. Edgardo Thakkar MD Brain MRI 07/29/17 Signed Impressions: Service Date/Time: Saturday, July 29, 2017 16:31 - CONCLUSION: 1. Few small focal areas of restricted diffusion in the superficial cortex of the posterior right parietal lobe suggesting small infarctions without evidence of blood products. 2. Left lateral orbital soft tissue thickening without T2 prolongation. 3. Asymmetric shape to the left orbital globe, slightly elongated in AP dimension when compared to the contralateral side. This is of uncertain significance. Edgardo Thakkar MD Objective Remarks GENERAL: This is a well-nourished, well-developed patient, in no apparent distress sitting in bed. SKIN: No rashes, bruise under left eye. Cool and dry. CARDIOVASCULAR: Normal S1 and S2. Regular rate and rhythm without murmurs, gallops, or rubs. RESPIRATORY: Clear to auscultation bilaterally, no rales, or rhonchi. GASTROINTESTINAL: Abdomen soft, non-tender, slightly distended. GENITOURINARY: Significant scrotal edema, no erythema/cyanosis. MUSCULOSKELETAL: Extremities without clubbing, cyanosis, or edema. +2 BL thigh edema noted, slightly improved. +2DP pulses BL. scrotal edama. NEUROLOGICAL: Awake and alert. Cranial nerves II through XII intact. Grossly non-focal. Normal speech. (Surya Sprague MD, R1) A/P Assessment and Plan 62 yo male with past medical history of diabetes and GERD presents with: (Surya Sprague MD, R1) Attending Attestation Patient seen and examined. Case reviewed and discussed Agree with plan of care as discussed with me and documented in the resident note. (Chica Brown MD) Problem List: (1) CVA (cerebral vascular accident) ICD Codes: I63.9 - Cerebral infarction, unspecified Status: Acute Plan: MRI brain: Few small focal areas of restricted diffusion in the superficial cortex of the posterior right parietal lobe suggesting small infarctions without evidence of blood products. Radiological report discussed with radiologist integration technician MRI brain does suggest acute ischemic stroke On exam: AAOx3, no focal neurological deficits CTA neck with 70% RCA stenosis U/S carotid consistent with CTA findings Stroke protocol initiated Neurology consulted, appreciate recommendations -Patient cleared to discharge from neurology standpoint and follow-up as outpatient. -Continue with aspirin and statin Patient passed bedside swallow, po resumed (2) Hypoglycemia ICD Codes: E16.2 - Hypoglycemia, unspecified Status: Resolved Plan: Patient brought in by EMS due to a witnessed fall and BG found to be in the 30s Patient with continued AMS in the ED. AAOx3 during admission interview. 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) (4) Scrotal edema ICD Codes: N50.89 - Other specified disorders of the male genital organs Status: Acute Plan: Acute on chronic (this has been issue for patient in past) Exam suggestive of lymphedema Most likely etiology - body habitus, mild CHF, continued IV fluids -Give additional 20 mg lasix IV today -Follow clinically once IVF discontinued -Needs urology follow up outpatient (recommended prior admission) (5) Diabetes type 2, uncontrolled ICD Codes: E11.65 - Type 2 diabetes mellitus with hyperglycemia Status: Chronic Plan: Patient with home insulin regimen: Lantus 36 units am and 33 units HS humalog 5 units before breakfast see plan above (6) GERD (gastroesophageal reflux disease) ICD Codes: K21.9 - Gastro-esophageal reflux disease without esophagitis Status: Chronic Plan: stable c/w omeprazole (7) Chronic venous insufficiency ICD Codes: I87.2 - Venous insufficiency (chronic) (peripheral) Status: Chronic Plan: stable, no LE edema noted on exam except at thighs and scrotum as noted c/w lasix 40 mg QD (8) CHF (congestive heart failure) ICD Codes: I50.9 - Heart failure, unspecified Status: Chronic Plan: Echo 05/30/17: EF 40-45% Repeat echo 06/01/17: EF 25-30% BNP 592 c/w lasix 40mg QD (9) Nutrition, metabolism, and development symptoms ICD Codes: R63.8 - Other symptoms and signs concerning food and fluid intake Plan: Fluids: note indicated at this time Electrolytes: monitor, replete as needed Nutrition: diabetic diet DVT ppx: lovenox 40mg Q24h (Surya Sprague MD, R1) Problem Qualifiers (1) CVA (cerebral vascular accident): (2) Closed head injury: Qualified Codes: S09.90XA - Unspecified injury of head, initial encounter (3) CHF (congestive heart failure): Qualified Codes: I50.9 - Heart failure, unspecified Surya Sprague MD, R1 August 01, 2017 16:22 Chica Brown MD August 02, 2017 10:01
--- NOTE | 2017-08-01 16:27 | HHI.FF ---
Face to Face Verification Diagnosis: (1) Confusion (2) Closed head injury (3) Diabetes type 2, uncontrolled (4) CHF (congestive heart failure) (5) Diabetic peripheral neuropathy (6) Hypoglycemia (7) CVA (cerebral vascular accident) Physical Therapy Order: Evaluate and Treat Occupational Therapy Order: Evaluate and Treat Home Health Nursing Order: Medical education Signs/symptoms of disease process Diabetic education CHF education Wound care and dressing changes Ceiling Installer Order: To Evaluate: Support services Order: To Provide: Community services I have seen patient Ariel Mejia on 08/01/17. My clinical findings support the need for the requested home health care services because: Patient has SOB Med compliance is questionable Need for psychosocial assistance High risk of falls I certify that my clinical findings support that this patient is homebound because: Unsteady gait/balance Need for psychosocial assistance Surya Sprague MD, R1 August 01, 2017 16:27
[2017-08-01] MEDS: MUPIROCIN 2% OINT 22 GM TUBE TOPICAL SCH ×2 (16:30→21:32)
[2017-08-01] MEDS ORDERED: METO1TAB42 PO (16:57)
[2017-08-01] MEDS ORDERED: LISINOPRIL 5 MG TAB PO ONE (17:00)
[2017-08-01] MEDS ORDERED: diphenhydrAMINE HCL 2%/ZINC ACETATE 0.1% CREAM 30 APPLIC/30 GM TUBE TOPICAL PRN (17:00)
[2017-08-01] MEDS: ENOXAPARIN SODIUM 40 MG/0.4 ML SYRINGE SQ SCH (17:34)
[2017-08-01 17:51] LABS: C-PEPTIDE 0.33 ng/mL (0.80-3.85)
[2017-08-01 20:00] VITALS: BP 138/71; PULSE 86; RESP 19; TEMP 97.9; O2SAT 100
[2017-08-01] MEDS: ATORVASTATIN 40 MG TAB PO SCH (21:31)
[2017-08-02] VITALS: BP 128/66; PULSE 94; RESP 20; TEMP 97.6; O2SAT 99
[2017-08-02 04:00] VITALS: BP 127/65; PULSE 89; RESP 19; TEMP 97.2; O2SAT 96
[2017-08-02] MEDS: CHLORHEXIDINE GLUCONATE 2 % 1 PACK (2 CLOTHS)(taper/protocol) TOPICAL SCH (04:00)
[2017-08-02] MEDS: MUPIROCIN 2% OINT 22 GM TUBE TOPICAL SCH ×2 (06:35→14:00)
[2017-08-02 08:22] VITALS: BP 149/71; PULSE 96; RESP 17; TEMP 97.3; O2SAT 95
[2017-08-02] MEDS: CLOTRIMAZOLE 1% CREAM 15 GM TOPICAL SCH (09:00)
[2017-08-02] MEDS: INSULIN ASPART SUPPLEMENTAL SCALE SQ SCH ×2 (09:02→12:00)
[2017-08-02] MEDS: FUROSEMIDE 40 MG TAB PO SCH (09:03)
[2017-08-02] MEDS: DOCUSATE SODIUM 50 MG/SENNA 8.6 MG TAB PO SCH (09:03)
[2017-08-02] MEDS: PANTOPRAZOLE SOD 40 MG DELAYED RELEASE TAB PO SCH (09:03)
[2017-08-02] MEDS: ACETAMINOPHEN/HYDROcodone 325 MG/10 MG TAB PO PRN (09:03)
[2017-08-02] MEDS: SODIUM CHLORIDE 0.9% FLUSH 10 ML FLUSH IV FLUSH SCH (09:03)
[2017-08-02] MEDS: ASPIRIN 325 MG TAB PO SCH (09:04)
[2017-08-02 09:11] VITALS: O2SAT 99
[2017-08-02 09:18] LABS: BICARBONATE 28.7 MEQ/L (21.0-32.0); CALCIUM 8.8 MG/DL (8.5-10.1); CREATININE 0.91 MG/DL (0.60-1.30)
[2017-08-02] MEDS ORDERED: SPIRONOLACTONE 25 MG TAB PO SCH (09:45)
[2017-08-02] MEDS ORDERED: FUROSEMIDE 40 MG/4 ML VIAL IV PUSH ONE (09:45)
[2017-08-02] MEDS ORDERED: FURO1TAB60 PO (09:46)
[2017-08-02] MEDS ORDERED: ASA325 PO (09:48)
[2017-08-02] MEDS ORDERED: ATOR40TA16 PO (09:48)
[2017-08-02] MEDS ORDERED: LISI-519 PO (09:51)
[2017-08-02] MEDS ORDERED: SPIR25TA PO (09:52)
[2017-08-02] MEDS ORDERED: LISINOPRIL 5 MG TAB PO SCH (10:00)
[2017-08-02 12:04] VITALS: BP 134/80; PULSE 88; RESP 18; TEMP 97.9; O2SAT 95
--- NOTE | 2017-08-02 12:31 | HHI.FPPN ---
Subjective Remarks Patient seen and examined at bedside this morning. No acute events overnight. Patient still with complains of SOB worse with laying flat and exertion. Scrotal and BL thigh swelling has remained stable. (Surya Sprague MD, R1) Objective Vitals Vital Signs Date Time Temp Pulse Resp B/P (MAP) Pulse Ox O2 Delivery O2 Flow Rate FiO2 08/02/17 12:04 97.9 88 18 134/80 (98) 95 08/02/17 09:11 99 21 08/02/17 08:22 97.3 96 17 149/71 (97) 95 08/02/17 04:00 97.2 89 19 127/65 (85) 96 08/02/17 00:00 97.6 94 20 128/66 (86) 99 08/01/17 20:00 97.9 86 19 138/71 (93) 100 I/O 08/01/17 08/01/17 08/01/17 08/02/17 08/02/17 08/02/17 07:00 15:00 23:00 07:00 15:00 23:00 Intake Total 1000 ml 400 ml Balance 1000 ml 400 ml Intake Oral 1000 ml 400 ml # Voids 4 4 # Bowel Movements 1 1 (Surya Sprague MD, R1) Result Diagram: 08/01/17 0546 08/02/17 0825 Objective Remarks GENERAL: This is a well-nourished, well-developed patient, in no apparent distress sitting in bed. SKIN: No rashes, bruise under left eye. Cool and dry. CARDIOVASCULAR: Normal S1 and S2. Regular rate and rhythm without murmurs, gallops, or rubs. RESPIRATORY: Clear to auscultation bilaterally, no rales, or rhonchi. GASTROINTESTINAL: Abdomen soft, non-tender, slightly distended. GENITOURINARY: Significant scrotal edema, no erythema/cyanosis. MUSCULOSKELETAL: Extremities without clubbing, cyanosis, or edema. +2 BL thigh edema noted, slightly improved. +2DP pulses BL. scrotal edama. NEUROLOGICAL: Awake and alert. Cranial nerves II through XII intact. Grossly non-focal. Normal speech. (Suray Sprague MD, R1) A/P Assessment and Plan 62 yo male with past medical history of diabetes and GERD presents with: (Surya Sprague MD, R1) Attending Attestation Case reviewed and discussed with the resident team. Agree with plan of care as discussed with me and documented in the resident note. (Angelita Guevara MD) Problem List: (1) CVA (cerebral vascular accident) ICD Codes: I63.9 - Cerebral infarction, unspecified Status: Acute Plan: MRI brain: Few small focal areas of restricted diffusion in the superficial cortex of the posterior right parietal lobe suggesting small infarctions without evidence of blood products. Radiological report discussed with radiologist donations attendant MRI brain does suggest acute ischemic stroke On exam: AAOx3, no focal neurological deficits CTA neck with 70% RCA stenosis U/S carotid consistent with CTA findings Stroke protocol initiated Neurology consulted, appreciate recommendations -Patient cleared to discharge from neurology standpoint and follow-up as outpatient. -Continue with aspirin and statin (2) Hypoglycemia ICD Codes: E16.2 - Hypoglycemia, unspecified Status: Resolved Plan: Patient brought in by EMS due to a witnessed fall and BG found to be in the 30s Patient with continued AMS in the ED. AAOx3 during admission interview. 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) (4) Scrotal edema ICD Codes: N50.89 - Other specified disorders of the male genital organs Status: Acute Plan: Acute on chronic (this has been issue for patient in past) Exam suggestive of lymphedema Most likely etiology - body habitus, mild CHF, continued IV fluids -Give additional 20 mg lasix IV today -Follow clinically once IVF discontinued -Needs urology follow up outpatient (recommended prior admission) (5) Diabetes type 2, uncontrolled ICD Codes: E11.65 - Type 2 diabetes mellitus with hyperglycemia Status: Chronic Plan: Patient with home insulin regimen: Lantus 36 units am and 33 units HS humalog 5 units before breakfast see plan above (6) GERD (gastroesophageal reflux disease) ICD Codes: K21.9 - Gastro-esophageal reflux disease without esophagitis Status: Chronic Plan: stable c/w omeprazole (7) Chronic venous insufficiency ICD Codes: I87.2 - Venous insufficiency (chronic) (peripheral) Status: Chronic Plan: stable, no LE edema noted on exam except at thighs and scrotum as noted increase to lasix 40 mg BID (8) CHF (congestive heart failure) ICD Codes: I50.9 - Heart failure, unspecified Status: Chronic Plan: Pt with c/o of SOB on exertion and orthopnea Echo 05/30/17: EF 40-45% Repeat echo 06/01/17: EF 25-30% BNP 592-->1064 increased lasix to 40mg QD c/w lisinopril QD Pt started on spironolactone today On discharge pt to start metoprolol (9) Nutrition, metabolism, and development symptoms ICD Codes: R63.8 - Other symptoms and signs concerning food and fluid intake Plan: Fluids: note indicated at this time Electrolytes: monitor, replete as needed Nutrition: diabetic diet DVT ppx: lovenox 40mg Q24h (Surya Sprague MD, R1) Problem Qualifiers (1) CVA (cerebral vascular accident): (2) Closed head injury: Qualified Codes: S09.90XA - Unspecified injury of head, initial encounter (3) CHF (congestive heart failure): Qualified Codes: I50.9 - Heart failure, unspecified Surya Sprague MD, R1 August 02, 2017 12:31 Angelita Guevara MD August 03, 2017 13:40
--- NOTE | 2017-08-02 14:56 | PD.AMA ---
Against Medical Advice Note Discharge Disposition: Against Medical Advice Pt Condition on Discharge: Guarded AMA Statement Patient Ariel Mejia has decided to leave the hospital against medical advice. This patient has the capacity to refuse care and understands the risks of leaving, including permanent disability and/or , and has had an opportunity to ask questions about his condition. The patient has been informed that he may return for care at any time, and follow up has been arranged/ advised. We will discharge him with medications. We thoroughly discussed with him the importance of following with his physicians: PCP, cardiology and neurology. Memo Jauregui MD R3 August 02, 2017 14:56
[2017-08-02] MEDS ORDERED: FUROSEMIDE 40 MG TAB PO SCH (18:00)
== END 2017-08-02 15:12 | disposition left against medical advice (07) | DRG 64 ==
LOC: NEPE 08:54 → NEDA 11:45 → OBSVTOIN 16:08 → HIMW 22:00 → N06B 07-30 20:22
PROVIDERS: ADMIT Family Medicine; ATTEND Family Medicine
DX: I63.9 Cerebral infarction, unspecified (principal); G93.41 Metabolic encephalopathy; I50.22 Chronic systolic (congestive) heart failure; E11.42 Type 2 diabetes mellitus with diabetic polyneuropathy; E11.649 Type 2 diabetes mellitus with hypoglycemia without coma; E11.3593 Type 2 diabetes mellitus with proliferative diabetic retinopathy without macular edema, bilateral; F17.290 Nicotine dependence, other tobacco product, uncomplicated; I87.2 Venous insufficiency (chronic) (peripheral); R40.2364 Coma scale, best motor response, obeys commands, 24 hours or more after hospital admission; R40.2144 Coma scale, eyes open, spontaneous, 24 hours or more after hospital admission; R40.2254 Coma scale, best verbal response, oriented, 24 hours or more after hospital admission; E11.65 Type 2 diabetes mellitus with hyperglycemia; S09.90XA Unspecified injury of head, initial encounter; I65.21 Occlusion and stenosis of right carotid artery; N50.89 Other specified disorders of the male genital organs; R63.0 Anorexia; H33.052 Total retinal detachment, left eye; K21.9 Gastro-esophageal reflux disease without esophagitis; Z79.4 Long term (current) use of insulin; Z79.891 Long term (current) use of opiate analgesic; Z79.899 Other long term (current) drug therapy; Z86.19 Personal history of other infectious and parasitic diseases; Z96.1 Presence of intraocular lens
CPT/HCPCS: 12015; 70450; 70498; 70551; 71046; 73120; 73130; 80048; 80053; 80061; 80307; 82533; 82550; 82948; 83036; 83525; 83605; 83735; 83880; 84146; 84206; 84681; 85014; 85018; 85025; 85027; 87040; 87641; 90471; 90714; 93308; 93880; 93971; 94150; J1610; J1650; J1815; J1940; J3480; Q9967